=== PATIENT | female | born 1975 | race Caucasian/White ===

== ENCOUNTER 2024-12-28 07:01 | Emergency (ER) | payer OTHER, SELFPAY ==
--- NOTE | 2024-12-28 | ECG_ITS ---
Test Reason : raine Blood Pressure : */* mmHG Vent. Rate : 51 BPM Atrial Rate : 51 BPM P-R Int : 126 ms QRS Dur : 80 ms QT Int : 472 ms P-R-T Axes : 5 40 59 degrees QTcB Int : 435 ms Sinus bradycardia Otherwise normal ECG Referred By: Generic ED Physician Electronically Signed By: Wander Peters
--- NOTE | ~2024-12-28 | XR_ITS ---
EXAMINATION: XR CHEST CLINICAL INFORMATION: weakness, dyspnea COMPARISON: None available. TECHNIQUE: 2 views of the chest were obtained. FINDINGS: Hyperinflated lungs. No consolidation, pleural effusion or pneumothorax. Cardiomediastinal silhouette size is normal. S-shaped curvature of the mid thoracic spine. XR/XR chest 2V IMPRESSION: Hyperinflated lungs without acute airspace disease. Mild scoliosis, mid thoracic spine. Electronically signed by: Derick Cortez MD 12/28/2024 09:11 AM EDT
--- NOTE | ~2024-12-28 | CT_ITS ---
EXAMINATION: CT HEAD WITHOUT CONTRAST CLINICAL INFORMATION: Weakness times weeks. COMPARISON: None available. TECHNIQUE: Contiguous axial imaging was performed from the skull base to vertex without intravenous administration of contrast. This CT examination was performed using dose optimization techniques as appropriate, variously including the following: *Automated exposure control *Adjustment of mA and/or kV according to patient size (this includes techniques or standardized protocols for targeted exams where dose is matched to indication/reason for exam; i.e. extremities or head) *Use of iterative reconstruction technique FINDINGS: There is no evidence of intracranial hemorrhage or extra-axial fluid collection. There is no mass effect, or edema. No CT evidence of acute territorial infarct. Ventricles, sulci, and cisterns are normal in size and configuration for patient age. No hydrocephalus. No midline shift. Negative hyperdense MCA sign. Negative insular ribbon sign. 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 Otherwise no significant white matter abnormalities. Normal pituitary. Globes and orbital contents image normally. No extracranial soft tissue abnormalities. The paranasal sinuses, mastoid air cells, and tympanic cavities are normally aerated. No suspicious bony abnormalities. There are no acute fractures evident. CT/CT head/brain wo IV con IMPRESSION: No acute intracranial abnormalities. Electronically signed by: Kumar Min MD 12/28/2024 10:13 AM EDT
[2024-12-28 07:06] VITALS: BP 116/63; O2SAT 100
[2024-12-28 07:11] VITALS: BP 121/74; PULSE 58; RESP 14; TEMP 36.6; O2SAT 100; BMI 20.4
[2024-12-28 07:17] VITALS: BP 121/74; PULSE 58; RESP 14; TEMP 36.6; O2SAT 100
--- NOTE | 2024-12-28 07:23 | PC.NURSE ---
Patient A&O x 3. PMH hashimotos, gastroparesis. Patient presents to ED c/o weakness. Patient has been feeling weak over the last two weeks, Patient has been seen recently twice at [facility] to rule out stroke and low BP, patient states no significant findings. VSS and up to date. Denies pain. SOB on exertion but denies SOB at this time. Sick contact with , who had a cold a week ago. Call mcneal in reach plan of care on going
--- NOTE | 2024-12-28 08:03 | ED.GENADULT ---
HPI - General Adult General Chief complaint: Weakness Stated complaint: GENERAL WEAKNESS/ SOB Time Seen by Provider: 12/28/24 07:58 Source: patient, RN notes reviewed and old records reviewed Mode of arrival: ambulatory Limitations: no limitations History of Present Illness ED Provider: Kari GUERRIER narrative: Patient is a 49-year-old female with history of Tish's thyroiditis presenting to the emergency department with complaining of profound fatigue and weakness since . Reports shortness of breath due to weakness. Denies any complaints of pain. Has been evaluated at [facility] ED twice for symptoms, has also seen PCP twice who ordered OT as patient initially diagnosed with BPPV at [facility]. OT advised patient that symptoms could be due to myasthenia gravis. states they began to research MG symptoms online, and feels patient has many similar symptoms. PCP ordered labs yesterday but patient does not have results yet. states he brought patient to the ED this morning because she was opening a birthday gift and got so excited on the inside that she became dyspneic. She denies fevers, nausea, vomiting, diarrhea. Reports mild cough. Has been out of work due to symptoms. complaint: weakness/fatigue Onset (ago): week(s) Related Data Allergies Allergy/AdvReac Type Severity Reaction Status Date / Time No Known Allergies Allergy Verified 12/28/24 07:12 [No Known Allergies*] Review of Systems Review of Systems: As per HPI Yes all other systems are reviewed and are negative Constitutional: Constitutional: Reports as per HPI Neurologic: Denies Abnormal speech present [facility] Social History Social History Smoked in Last 30 Days: No Use of substances other than those prescribed or required for medical reasons: No Advance Directives: No Advance Directives Information Provided: Yes Do you have a plan to hurt others: No Plan Patient : No Physical Exam ED Vital Signs: Vital Signs - 24 hr 12/28/24 07:11 12/28/24 07:17 12/28/24 13:09 Temperature 97.8 F 97.8 F 98.3 F Pulse Rate 58 58 70 Respiratory Rate 14 14 14 Blood Pressure 121/74 121/74 93/62 Pulse Oximetry 100 100 97 Oxygen Delivery Method Room Air Room Air Room Air BMI result Body Mass Index 20.4 Vital signs have been reviewed and appear to be correct. Blood pressure normal. Heart rate normal. Respiratory rate normal. Temperature normal. Oxygen saturation normal. Const General: cooperative, healthy appearing and no acute distress Orientation/consciousness: oriented to person, oriented to place, oriented to time and patient oriented x3 Limitations: no limitations HENMT Head: Yes normocephalic and Yes atraumatic Ears: external ears normal General nose exam: Normal external nose present Face and sinus: Yes face symmetric Mouth: oropharynx normal and moist mucous membranes Throat: Yes uvula midline Eyes Pupils: Equal, round and reactive pupils present Neck Neck: Yes normal visual inspection, Yes no meningeal signs and Yes supple Resp Effort & Inspection: normal respiratory effort and able to speak in complete sentences Auscultation: clear to auscultation bilaterally Cardio Rate: regular rate Rhythm: regular rhythm Heart sounds: S1 normal heart sound present and S2 normal heart sound present GI Palpation (GI): Soft to palpation and nontender Auscultation: normoactive bowel sounds General: Yes no CVA tenderness Back/Spine/Pelvis Back: no CVA tenderness Skin General skin exam: elasticity normal and turgor normal Neuro General: oriented to person, oriented to place, oriented to time, patient oriented x3, tone normal, moves all extremities, Normal light touch and pain sensation, no meningeal signs, no focal motor deficits, CN's II-XI intact bilaterally and deep tendon reflexes 2+ bilaterally Cranial nerves: Yes Equal, round and reactive pupils present Cognition (Neuro): normal cognition Speech: No Abnormal speech present Motor exam (neuro): Abnormal motor strength present (4/5 strength all extremities) Sensory Exam: Normal double simultaneous stimulation for sensation Extrem General: Yes full ROM, Yes no pedal edema and Yes no calf tenderness Psych Mental Status: mental status grossly normal Affect: normal affect Thought process: Normal thought process present Course Reevaluation(s) Reevaluation #1: Notified by critical care technician that patient noted to have bright green, mucousy bowel movement. GI panel and C. diff ordered. Time: 10:23 Medical Decision Making Medical Decision Making MDM Narrative: Patient is a 49-year-old female with history of Tish's thyroiditis presenting to the emergency department with complaining of profound fatigue and weakness since Memorial Day. On exam patient is awake, A+Ox3, VS WNL, afebrile, normal neurological exam without focal deficits, physical exam findings as above. Given reported symptoms and physical exam findings, initial differential includes but is not limited to cardiac arrhythmia, electrolyte abnormality, abnormal thyroid level, UTI, tick borne illness. Unlikely ICH, malignancy/mass but will check CT head and chest x-ray. Labs notable for leukopenia, mild anemia, no significant electrolyte abnormalities, normal TSH. Tick panel pending, patient will be updated with any positive results. C diff negative, additional GI panel pending and patient will be contacted with any positive results. Urinalysis is without evidence of infection. X-ray chest notable for No cardiomegaly, no evidence of pneumonia, no mass. CT head is without evidence of ICH, mass. My interpretation is in agreement with the radiologist's interpretation. NIF test normal. Results discussed extensively with patient and family at bedside. Advised patient to follow-up with PCP for outpatient MRI and will refer to Neurology for further evaluation of her symptoms. Return precautions discussed at bedside. Patient and family verbalized understanding of and agreement with plan. Differential Diagnosis Differential Diagnoses: The differential diagnosis associated with the presentation includes as per [facility] Admission/Observation Consideration of admission/observation: Escalation of care including admission/observation considered Patient would have been admitted to the hospital had their work up had any findings where hospital admission was appropriate and their clinical presentation warranted hospital admission. Lab Data [facility] Lab Attestation statement: I reviewed the patient's lab results. As per [facility] 12/28/24 08:52 12/28/24 08:52 Labs: Lab Results 12/28/24 12/28/24 12/28/24 Range/Units 08:52 10:10 10:27 WBC 2.7 L (4.8-10.8) X10*3/uL RBC 4.02 L (4.20-5.50) X10*6/uL Hgb 11.4 L (12.0-16.0) g/dl Hct 33.0 L (37.0-47.0) % MCV 82.1 (80.0-98.0) fL MCH 28.4 (27.0-33.0) pg MCHC 34.5 (31.0-35.0) g/dl RDW 14.6 (11.0-16.0) % Plt Count 160 (160-400) X10*3/uL MPV 10.3 (9.4-12.3) fL Immature Gran % (Auto) 0.0 (0.0-0.4) % Neut % (Auto) 52.8 (45-73) % Lymph % (Auto) 32.5 (20-40) % [place] % (Auto) 12.5 H (2-11) % Eos % (Auto) 1.8 (0-4) % Baso % (Auto) 0.4 (0-2) % Lymph # (Auto) 0.9 L (1.2-4.9) X10*3/uL [place] # (Auto) 0.3 (0.1-1.2) X10*3/uL Eos # (Auto) 0.1 (0.0-0.4) X10*3/uL Baso # (Auto) 0.0 (0.0-0.2) X10*3/uL Abs Immat Gran (auto) 0.00 (0.00-0.03) X10*3/uL Absolute Neuts (auto) 1.4 L (2.0-8.3) x10*3/uL Absolute Nucleated RBC 0.000 (0.0-0.012) X10*3/uL Nucleated RBC % (auto) 0.0 (0.0-0.2) /100WBC Sodium 141 (135-145) mmol/L Potassium 3.8 (3.3-5.1) mmol/L Chloride 107 (96-108) mmol/L Carbon Dioxide 28 (22-29) mmol/L Anion Gap 10 L (12-20) BUN 11 (9-16) mg/dL Creatinine 0.82 (0.5-1.4) mg/dL Estim Creat Clear Calc 58.9 Estimated GFR > 60 Random Glucose 90 (60-115) mg/dL Calcium 9.3 (8.4-10.2) mg/dL Magnesium 2.0 (1.6-2.6) mg/dL Total Bilirubin 0.4 (0.0-1.0) mg/dL AST 36 H (5-31) U/L ALT 12 (0-31) U/L Alkaline Phosphatase 47 (39-117) U/L Total Protein 6.7 (6.5-8.0) g/dL Albumin 4.1 (3.5-5.0) g/dL TSH 1.72 (0.32-4.0) uIU/mL Urine Color Yellow Urine Appearance Clear Urine pH 6.5 (5.0-9.0) Ur Specific [place] 1.015 (1.005-1.025) Urine Protein Negative (Neg-Trace) mg/dL Urine Glucose (UA) Negative (Negative) mg/dL Urine Ketones Negative (Negative) mg/dL Urine Blood Negative (Negative) Urine Nitrite Negative (Negative) Ur Leukocyte Esterase Negative (Negative) C. difficile Tox B Gene NEGATIVE (Negative) Monoscreen Negative (Negative) Independent Interpretation I performed an independent interpretation of an: Plain X-Ray and CT Scan Interpretation: X-ray chest notable for No cardiomegaly, no evidence of pneumonia, no mass. CT head is without evidence of ICH, mass. Radiology Impression Discussion of test interpretation with radiology: I have reviewed the radiologist's reading. Radiologist Impression: XR/XR chest 2V IMPRESSION: Hyperinflated lungs without acute airspace disease. Mild scoliosis, mid thoracic spine. CT/CT head/brain wo IV con IMPRESSION: No acute intracranial abnormalities. Independent Historian Clinical information obtained from an independent historian. History obtained from or confirmed by: Spouse and Parent External Record Review External record reviewed: Inpatient record, Office record and Outpatient record Discharge Plan Discharge Clinical Impression: Weakness Patient Disposition: Home, Self-Care Instructions: Weakness (ED), Fatigue (ED) Additional Instructions: You were evaluated in the emergency department today for profound fatigue. Your labs were reassuring. Your urine did not show evidence of infection. Your tick borne illness panel and GI panel (stool sample) is pending and you will be contacted with any positive results. The CT scan of your brain and chest x-ray did not show any acute abnormalities. Your NIF and VC testing by respiratory therapy were normal. We recommend follow up with your primary care provider and are referring you to neurology for further evaluation of your symptoms. Return to the emergency department if you develop one-sided weakness, chest pain, difficulty breathing, fever, or any other new or concerning symptoms. Referrals: Kelley Serrano MD [Physician] - 1 week (profound fatigue/weakness since 12/11/24) Print Language: Danish
--- OUTSIDE RECORDS SUMMARY | 2024-12-28 08:06 | XMS_ITS | Patient Health Record ---
Author Organization Tushar Bowling III, MD Address [address] [place] [address] [place] [address] Care Team Providers Care Clinical Physician Assistant Name Role Phone Eagle Carri Primary Care Provider Tushar Martinez [facility] [phone] Allergies Allergen (clinical drug ingredient) Drug/Non Drug [...] Last Name Dash Referring Provider Speciality [facility] Referred Provider Vitaly Robles Referred Provider Specialty Endocrinolog y Referral Priority Routine Reason positive RAY ? lupus evaluate and treatment Diagnosis 1 RAY positive (R76.8) Diagnosis 2 Upper extremity weak ness (R29.898) Referral Organization Tushar Bowling III, MD Referring Provider First Name Tushar Referring Provider Last Name Dash Referring Provider Speciality Internal edicine Referred Provider [facility] Referred Provider Specialty Rheumatology Referral Priority Routine Medications Medication SIG (Take, Route, Frequency, Duration) [...] Never (0 point) Points 1 Interpretation Negative Problems Problem Type SNOMED Code ICD Code Onset Dates Problem Status W/U Status Risk Notes Problem 412260225 RAY positive (R76.8) Active confirmed Problem 166903947 Upper extremity weakness (R29.898) Active confirmed Problem 10679663 Hypothyroidism, unspecified type (E03.9) Active confirmed Vital Signs Heart Rate 55 /min 12/23/2024 Temperature 98.1 degrees Fahrenheit 12/23/2024 Blood pressure diastolic 56 mm Hg 12/23/2024 Height 5' in 12/23/2024 Blood pressure systolic 92 mm Hg 12/23/2024 Weight 100 lbs 12/23/2024 BMI 19.53 kg/m2 12/23/2024 Encounters Encounter Location Date Provider Diagnosis Tushar Bowling III, MD [address] [place] [address] [place] [address] 12/23/2024 Tushar Bowling III, MD [address] [place] [address] [place] [address] 12/27/2024 Tushar Bowling Plan Of Treatment No Information Insurance Providers Payer Name Payer Address Payer Phone Subscriber Number Group Number Insured Name Patient Relationship to Insured Coverage Start Date Coverage End Date [facility] [address] [facility] [address] [facility] [place] [phone] [id number] Eva Alejandra Self - patient is the insured [facility] [address] [place] [address] [phone] [id number] Tigre Alejandra Spouse - patient is the spouse of the insured Medical (General) History Surgical History Surgery Date(Month/Year) Root canal 2023
[2024-12-28 09:00] LABS: MANUAL DIFF FLAG NO
[2024-12-28 09:02] LABS: Basophils Percent Auto 0.4 % (0-2); Eosinophils Absolute Auto 0.1 X10*3/uL (0.0-0.4); Eosinophils Percent Auto 1.8 % (0-4); Hemoglobin 11.4 g/dl (12.0-16.0); Lymphocytes Absolute Auto 0.9 X10*3/uL (1.2-4.9); Lymphocytes Percent Auto 32.5 % (20-40); Mean Corpuscular HGB Conc 34.5 g/dl (31.0-35.0); Mean Corpuscular Hemoglobin 28.4 pg (27.0-33.0); Mean Corpuscular Volume 82.1 fL (80.0-98.0); Mean Platelet Volume 10.3 fL (9.4-12.3); Monocytes Absolute Auto 0.3 X10*3/uL (0.1-1.2); Monocytes Percent Auto 12.5 % (2-11); Neutrophils Absolute Auto 1.4 x10*3/uL (2.0-8.3); Neutrophils Percent Auto 52.8 % (45-73); Platelet Count 160 X10*3/uL (160-400); Red Blood Count 4.02 X10*6/uL (4.20-5.50); Red Cell Distribution Width 14.6 % (11.0-16.0); White Blood Count 2.7 X10*3/uL (4.8-10.8)
[2024-12-28 09:17] LABS: Alanine Aminotransferase 12 U/L (0-31); Albumin Level 4.1 g/dL (3.5-5.0); Alkaline Phosphatase 47 U/L (39-117); Anion Gap 10 (12-20); Aspartate Amino Transferase 36 U/L (5-31); Bilirubin Total 0.4 mg/dL (0.0-1.0); Blood Urea Nitrogen 11 mg/dL (9-16); Calcium 9.3 mg/dL (8.4-10.2); Carbon Dioxide 28 mmol/L (22-29); Chloride 107 mmol/L (96-108); Creatinine Clr Calc Pharmacy 58.9; Estimated Glomerular Filt Rate > 60; Glucose Random 90 mg/dL (60-115); Potassium 3.8 mmol/L (3.3-5.1); Sodium 141 mmol/L (135-145); Total Protein 6.7 g/dL (6.5-8.0)
[2024-12-28 09:37] LABS: Monotest Negative (Negative); TSH reflex Free T4 1.72 uIU/mL (0.32-4.0)
--- NOTE | 2024-12-28 10:07 | PC.RT ---
NIF and VC completed per provider request NIF -60 cmH2O VC 2.9L
[2024-12-28 10:40] LABS: Appearance Urine Clear; Color Urine Yellow; Glucose Urine UA Negative (Negative); Leukocyte Esterase Urine Negative (Negative); Nitrite Urine Negative (Negative); PH 6.5 (5.0-9.0); Specific Gravity - Urine 1.015 (1.005-1.025); Urine Blood Negative (Negative); Urine Ketones Negative (Negative); Urine Protein Negative (Neg-Trace)
[2024-12-28 11:43] LABS: CDiff Gene PCR NEGATIVE (Negative)
[2024-12-28 12:02] LABS: Adenovirus F 40/41 Not Detected (Not Detect.); Astrovirus Not Detected (Not Detect.); Campylobacter Not Detected (Not Detect.); Cryptosporidium Not Detected (Not Detect.); Cyclospora cayetanensis Not Detected (Not Detect.); E. coli EAEC Not Detected (Not Detect.); E. coli EPEC Not Detected (Not Detect.); E. coli ETEC Not Detected (Not Detect.); E. coli STEC Not Detected (Not Detect.); Entamoeba histolytica Not Detected (Not Detect.); Giardia lamblia Not Detected (Not Detect.); Norovirus GI/GII Not Detected (Not Detect.); Plesiomonas shigelloides Not Detected (Not Detect.); Rotavirus A Not Detected (Not Detect.); Salmonella Not Detected (Not Detect.); Sapovirus Not Detected (Not Detect.); Shigella sp./EIEC Not Detected (Not Detect.); Vibrio Not Detected (Not Detect.); Vibrio Cholerae Not Detected (Not Detect.); Yersinia enterocolitica Not Detected (Not Detect.)
[2024-12-28 13:09] VITALS: BP 93/62; PULSE 70; RESP 14; TEMP 36.8; O2SAT 97
[2024-12-28 13:19] VITALS: BP 92/68; PULSE 65; RESP 14; TEMP 36.4; O2SAT 97
[2024-12-30 18:38] LABS: A. Phagocytphilium DNA,RT-PCR NOT DETECTED (NOT DETECTED); Babesia Microti DNA, RT-PCR NOT DETECTED (NOT DETECTED); Borrelia Miyamotoi,DNA RT-PCR NOT DETECTED (NOT DETECTED); E.Chaffeensis DNA RT-PCR NOT DETECTED (NOT DETECTED); Lyme(Borrelia ssp)DNA RT-PCR NOT DETECTED (NOT DETECTED)
== END 2024-12-28 13:21 | disposition home or self-care (01) ==
PROVIDERS: Registered Nurse Emergency; Emergency Provider Emergency Medicine; PCP Physician Assistant
DX: R53.1 Weakness (principal); R06.02 Shortness of breath; R53.83 Other fatigue
CPT/HCPCS: 36415; 70450; 71046; 80053; 81003; 83735; 84443; 85025; 86308; 87468; 87469; 87478; 87484; 87493; 87507; 87798; 93005; 99284; 99285

== ENCOUNTER → 2024-12-28 07:40 | Outpatient (BNV) | payer OTHER, SELFPAY | PROVIDERS: Emergency Provider Emergency Medicine; PCP Physician Assistant; Visit Provider Internal Medicine Cardiovascular Disease | DX: R00.1 Bradycardia, unspecified (principal) | CPT/HCPCS: 93010 ==

== ENCOUNTER → 2024-12-28 08:26 | Outpatient (BNV) | payer OTHER, SELFPAY | PROVIDERS: Emergency Provider Emergency Medicine; PCP Physician Assistant; Visit Provider Radiology Diagnostic Radiology | DX: R06.00 Dyspnea, unspecified (principal) | CPT/HCPCS: 70450; 71046 ==

== ENCOUNTER 2025-01-13 14:53 | Outpatient (REF) | payer OTHER, SELFPAY ==
--- NOTE | 2025-01-13 | EMG_ITS ---
Please see the attached neurophysiology report MTDD
--- OUTSIDE RECORDS SUMMARY | 2025-01-13 14:55 | XMS_ITS | Patient Health Record ---
Author Organization Tushar Bowling III, MD Address [address] [place] [address] [place] [address] Care Team Providers Care Pattern Illustrator Name Role Phone Eagle Carri Primary Care Provider Tushar Martinez [phone] Allergies Allergen (clinical drug ingredient) Drug/Non Drug [...] of this week or beginning of next week. Referral Priority Routine Reason positive RAY ? lupus evaluate and treatment Diagnosis 1 RAY positive (R76.8) Diagnosis 2 Upper extremity weak ness (R29.898) Referral Organization Tushar Bowling III, MD Referring Provider First Name Tushar Referring Provider Last Name Dash Referring Provider Speciality Internal M edicine [facility] Referred Provider Specialty Rheumatology General Notes Dinah Salas RJ 12/29 09:37:39 AM >Waiting for progress note to fax to [facility], Aurora Cage 12/31/2024 02:29:37 PM > Referral, progress note and medical records faxed., Aurora Cage 01/03/2025 02:58:57 PM >Spoke with Emeka from [facility], stated they have not received the referral and needs to have it refaxed. Confirmed the fax number was correct. Referral refaxedFauzia Amber 01/04/2025 02:40:59 PM > Spoke with Elias from [facility]. They have NOT received the referral. Confirmed fax number and was given an Alternate fax number [phone]. Referral refaxedFauzia Amber 01/05/2025 11:12:18 AM > Office has received referral and it is currently under review by the doctor. Stated when referral is received back from doctor they will contact patient to schedule appointment. Spoke with Emeka from [facility] Referral Priority Urgent Medications Medication SIG (Take, Route, Frequency, Duration) [...] Problem Status W/U Status Risk Notes Problem 311696227 RAY positive (R76.8) Active confirmed She has a family history of lupus. The significance of this value is unclear. She is referred to rheumatology for an opinion. Problem 855756873 Upper extremity weakness (R29.898) Active confirmed Cause of this is unclear. She is being referred to rheumatology as well as to physical therapy. Problem 87931359 Hypothyroidism , unspecified type (E03.9) Active confirmed She was recently switched from [place] thyroid 2 levothyroxine. Recent evaluation not available. Vital Signs Heart Rate 55 /min 12/23/2024 She now weighs 100 pounds. Temperature 98.1 degrees Fahrenheit 12/23/2024 She now weighs 100 pounds. Blood pressure diastolic 56 mm Hg 12/23/2024 She now weighs 100 pounds. Height 5' in 12/23/2024 She now weighs 100 pounds. Blood pressure systolic 92 mm Hg 12/23/2024 She now weighs 100 pounds. Weight 100 lbs 12/23/2024 She now weighs 100 pounds. BMI 19.53 kg/m2 12/23/2024 She now weighs 100 pounds. Encounters Encounter Location Date Provider Diagnosis Tushar Bowling III, MD [address] [place] [address] [place] [address] 12/23/2024 Tushar Bowling RAY positive R76.8 ; Hypothyroidism, unspecified type E03.9 ; Upper extremity weakness R29.898 and Underweight R63.6 Tushar Bowling III, MD [address] [place] [address] [place] [address] 12/27/2024 Tushar Bowling III, MD [address] [place] [address] [place] [address] 12/29/2024 Tushar Bowling Assessments Encounter Date Diagnosis (ICD Code) Assessment Notes Treatment Notes Treatment Clinical Notes 12/23/2024 RAY positive (ICD-10 - R76.8) She has a family history of lupus. The significance of this value is unclear. She is referred to rheumatology for an opinion. 12/23/2024 Hypothyroidism, unspecified type (ICD-10 - E03.9) She was recently switched from [place] thyroid 2 levothyroxine. Recent evaluation not available. 12/23/2024 Upper extremity weakness (ICD-10 - R29.898) Cause of this is unclear. She is being referred to rheumatology as well as to physical therapy. 12/23/2024 Underweight (ICD-10 - R63.6) Her body mass index is 19. She weighs 100 pounds. She has gained 4 pounds since last summer. Plan Of Treatment No Information Insurance Providers Payer Name Payer Address Payer Phone Subscriber Number Group Number Insured Name Patient Relationship to Insured Coverage Start Date Coverage End Date [facility] [address] [facility] [address] [place] [phone] [id number] Eva Alejandra Self - patient is the insured [facility] [address] [place], [place] [address] [phone] [id number] Tigre Alejandra Spouse - patient is the spouse of the insured Medical (General) History Medical History History ICD Code Tish's thyroiditis Positive. DNA Upper extremity weakness Hypothyroidism Surgical History Surgery Date(Month/Year) Root canal 2023
--- OUTSIDE RECORDS SUMMARY | 2025-01-13 14:55 | XMS_ITS | Continuity of Care Document ---
Author Organization [facility] [address] [place] [address] Phone [phone] Care Team Providers Care Radio Talk Show Host Name Role Phone Tushar Bowling M.D. Care Team Information Receive r [phone] Social History Type Date Description Comments Sex Female Sex Unknown Medical Devices Description No Information Available Encounters Description No Information Available Assessments Description No Information Available Plan of Treatment Future Appointment(s):* 03/17/2025 9:15 am - Neda Johnson NP at Main Office Functional Status Description No Information Available Mental Status Description No Information Available Referrals Description No Information Available
== END 2025-01-13 14:54 | disposition home or self-care (01) ==
LOC: HO.NEURO 14:53
PROVIDERS: PCP Physician Assistant; Visit Provider Psychiatry & Neurology Neurology
DX: M62.81 Muscle weakness (generalized) (principal)
CPT/HCPCS: 95886; 95913

== ENCOUNTER → 2025-01-13 15:50 | Outpatient (BNV) | payer OTHER, SELFPAY | PROVIDERS: PCP Physician Assistant; Visit Provider Psychiatry & Neurology Neurology | DX: R53.1 Weakness (principal) | CPT/HCPCS: 95886; 95913 ==

== ENCOUNTER 2025-02-03 11:16 | Outpatient (AMB) | payer OTHER, SELFPAY ==
--- OUTSIDE RECORDS SUMMARY | 2024-12-23 07:30 | XMS_ITS ---
Author Organization Tushar Bowling III, MD Address [address] [place] [address] Care Team Providers Care Superintendent Service Name Role Phone Eagle Carri Primary Care Provider Tushar Martinez [phone] Allergies Allergen (clinical drug ingredient) Drug/Non Drug [...] to get patient in within about 2 weeks, Aurora Cage 12/31/2024 02:30:02 PM > Referral, progress note and all medical records faxed., Aurora Cage 01/03/2025 02:54:48 PM > Spoke with Trish at Dr. Robles office they have received the referral from 12/31/24. the referral dept is currently working on referrals from 12/20. She stated the patient should receive a call from them by the end of this week or beginning of next week., Dinah Salas CMA 01/20/2025 02:49:07 PM > I called Dr [...] Provider Speciality Internal M edicine Referred Provider [facility] Referred Provider Specialty Rheumatology General Notes Maritza Dinah CMA 12/29 09:37:39 AM >[facility] 12/31/2024 02:29:37 PM > Referral, progress note and medical records faxed.Fauzia Amber 01/03/2025 02:58:57 PM >Spoke with Emeka from [facility], stated they have not received the referral and needs to have it refaxed. Confirmed the fax number was correct. Referral refaxedFauzia Amber 01/04/2025 02:40:59 PM > Spoke with Elisa from [facility]. They have NOT received the referral. Confirmed fax number and was given an Alternate fax number [phone]. Referral refaxedFauzia Amber 01/05/2025 11:12:18 AM > Office has received referral and it is currently under review by the doctor. Stated when referral is received back from doctor they will contact patient to schedule appointment. Spoke with Emeka from [facility], Maritza Dinahlinda DE LA ROSA 01/20/2025 02:48:11 PM >Called [facility] pt has appt on 03/15/2025 at 10:15am [...] Date Provider Diagnosis Tushar Bowling III, MD [address] [place] [address] [place] [address] 12/23/2024 Tushar Bowling RAY positive R76.8 ; [...] - E03.9) She was recently switched from [place] thyroid 2 levothyroxine. Recent evaluation not available. [...] * Brittney COONOB:[birth year] (49 yo F)Acc No.[id number]:12/23/2024 Progress Notes Patient: Eva LOPES Provider: Jessica Bowling MD :1975 A ge:48 Y S ex:Female Date:12/23/2024 Address:[address] [place], [place] [id number] Pcp:Carri Guillermo Subjective: * Chief Complaints: * C oncern for thyroid cancerConcern for systemic lupusHypothyroidHashimoto's thyroiditisUpper extremity pain and weakness * HPI: v : She clearly is a very pleasant 49 year old woman from [place], [place], who comes to the office today for the first time for a consultation. She is concerned about her risk of thyroid cancer. She receives her primary medical care at [facility]. Her PCP is Dr. Edvin Park M.D., but she usually cease SELENA Renterai. They are in [place], [place]. The available records are incomplete. On [...] 2 weeks ago. She works as a high school agriculture teacher and has recently developed pain and numbness and weakness in her upper extremities. Cause of this is unclear. Her primary care. I have tried to get her into endocrinology in [place], [place], but there is a waiting list of several months. On physical examination today her thyroid was not palpable. Her mental status was normal. There was pain to eran muscles of her upper extremities, which were weaker, more on the left than on the right. I found no evidence for thyroid cancer. She is being referred to [facility] for diagnosis and [...] N otes :She was recently switched from [place] thyroid 2 levothyroxine. Recent evaluation not available. [...] true * Provider: Jessica Bowling MD Date: 12/23/2024 Generated for Penelope torres/Cuong/Stephanyitting on: 02/03/2025 12:11 PM EDT History and Physical Notes * Examination Category [...] and treatment 12/23/2024 Tushar Bowling ARTHRITIS, TREAT [facility] positive RAY ? lupus evaluate and treatment
--- OUTSIDE RECORDS SUMMARY | 2025-01-28 23:59 | XMS_ITS | Continuity of Care Document ---
Author Organization [facility] Address [address] [place] [address]- Care Team Providers Care Battery Service Technician Name Role Phone Lavon Park MD Primary Care Physician Encounter [facility] [id number] Date(s): 12/28/24 - 01/28/[address] [address] [phone] Attending Physician: Carri Carrera Admitting Physician: Carri Carrera Referring Physician: Carri Carrera Encounter Type: Pre-Outpt Allergies, Adverse Reactions, Alerts No Known Allergies Immunizations Given and Recorded Vaccine Date Status Refusal Reason influenza virus vaccine, inactivated 1 05/03/13 Gi keesha tetanus-diphtheria toxoids (Td) 10/12/04 Given 1Result Comment: [05/03/2013] PATIENT DECLINES FLU SHOT Medications levothyroxine 75 mcg (0.075 mg) oral tablet 1 tablet = 0.075 mg, By Mouth, Daily, for 90 days, # 90 tablet, 3 Refills, Hard Stop 01/12/16 3:33:52PM EDT, 01/17/15 3:33:52 PM EDT, [id number] Start Date: 01/17/15 Stop Date: 01/12/16 Status: Ordered Quantity: 90.0 Unit: tablet Repeat number: 4 Problem List Condition Confirmation Course Effective Dates Status Health St atus Informant Hypothyroid Confirmed Active Lump or Mass in Breast/left 1 Confirmed 08/30/10 Active Migraine Confirmed Active 1s/p in office left breast core bx- benign fibroglandular breast tissue with focal fibroadenomatous change 08-29-10 Social History Social History Type Response Smoking Status Never smoker entered on: 05/10/14 Sex Sex Representation Female (finding) Patient Care team information Care Team Personnel Name: Lavon Park MD Position: [facility] Physician - Pediatrics Member Role: PCP Address: [address] [place] [id number] Telecom: Name: Liliana Fan Position: [facility] Member Role: Primary Care Nurse Care Team Related Persons Name: TONI TRINIDAD Insurance Providers Guarantor name: BRIANA AMOS Health Plan Information #: 1 Payer: [employer] Payer Identifier: Member Number: [id number] Group Number: [id number] Subscriber Identifier: [id number] Relationship to Subscriber: spouse Coverage Type: NA Coverage Verification Date: Telecom: Address: Health Plan Information #: 2 Payer: [facility] [employer] Payer Identifier: Member Number: [id number] Group Number: [id number] Subscriber Identifier: [id number] Relationship to Subscriber: self Coverage Type: NA Coverage Verification Date: Telecom: Address: Health Plan Information #: 3 Payer: [employer] PPO Payer Identifier: Member Number: [id number] Group Number: Subscriber Identifier: [id number] Relationship to Subscriber: spouse Coverage Type: NA Coverage Verification Date: Telecom: Address: Health Plan Information #: 4 Payer: [employer] Payer Identifier: Member Number: [id number] Group Number: [id number] Subscriber Identifier: [id number] Relationship to Subscriber: spouse Coverage Type: Other Private Insurance Coverage Verification Date: Telecom: Address:
--- NOTE | 2025-02-03 11:17 | A.OFFVIS_ITS ---
Intake Visit Reasons: Results Allergies No Known Allergies (No Known Allergies*) Allergy (Verified 12/28/24 07:12) Medication List - Last Reconciled 02/03/25 by Leslie Hunt MD famotidine 40 mg PO BID levothyroxine 100 mcg PO DAILY rizatriptan 10 mg PO PRN trazodone 100 mg PO BEDTIME HPI Comments Details: 49 yo RH woman with diagnoses of hypothyroidism, insomnia, and migraine who started having new symptoms around 2024. She reported symptoms of a numb feeling affecting her face and head, like she was wearing a cap, and then numbness, tingling, and weakness of arms and legs. There was no headache. She sometimes had palpitations. No loss of vision or double vision. No difficulty swallowing or breathing. She denied any stressful situation. She was not drinking alcohol or using any drugs. Family stated that usually she was a very happy and active person but now she was very different. [facility] Medical History (Updated 02/03/25 @ 11:36 by Leslie Hunt MD) Encephalopathy Insomnia Paresthesias Review of Systems Const Details: Constitutional:?No fever, chills, fatigue, weight loss, or night sweats. HEENT:?No headache, vision changes, hearing loss, nasal congestion, sore throat. Neurological:?No dizziness, syncope, seizures, numbness, tingling, weakness, tremors, memory loss. Psychiatric:?No anxiety, depression, mood swings, sleep disturbance, or hallucinations. Endocrine:?No heat/cold intolerance, polydipsia, polyuria, or hair/skin changes. Hematologic/Lymphatic:?No easy bruising, bleeding, or lymphadenopathy. Integumentary (Skin):?No rash, lesions, itching, or color changes. ? Physical Exam Neuro Other: Mental Status: Alert and oriented to person, place, and time. Normal attention. Normal spontaneous speech, fluency, and comprehension. No obvious issues with mood and memory. Affect is appropriate. Cranial Nerves: CN II: Visual gann full to confrontation, visual acuity intact. CN III, IV, : Pupils equal, round, reactive to light and accommodation. Extraocular movements are normal. CN V: Facial sensation is normal. CN VII: Facial movements symmetrical. CN VIII: Hearing intact to bedside conversation is normal. CN IX, X: Palate elevates symmetrically. CN XI: Shoulder shrug and head turn symmetrical. CN XII: Tongue midline without atrophy or fasciculations. Motor: Bulk and tone normal in all extremities. No significant muscle weakness in arms and legs. No drift. Reflexes: Deep tendon reflexes 2+ and symmetric. Plantar response down-going bilaterally. Coordination: Hgamtn-fh-orpu and jktu-qz-klsb testing normal. No dysmetria. Gait and Station: No obvious gait abnormality. No ataxia or instability. Extrapyramidal: Full facial expressions and blinking. No rigidity. Movements are appropriate with no tremor or abnormality. Speech: Normal; no dysarthria or tremor. Assessment & Plan Assessment & Plan (1) Paresthesias: Comment: No cause is found and it is already better Code(s): R20.2 - Paresthesia of skin Category: Medical (2) Migraine without aura, not intractable, without status migrainosus: Comment: EMG/NCS LEs at off in January 2025: WNL CT brain WO at [facility] in December 2024: [facility] brain WWO at [facility] in December 2024: [facility] Code(s): G43.009 - Migraine without aura, not intractable, without status migrainosus Category: Medical (3) RLS (restless legs syndrome): Code(s): G25.81 - Restless legs syndrome Category: Medical Plan Impression: a: Restless leg syndrome b: Migraine w/o aura c: Difficult to explain paresthesia with negative work up d: Insomnia that could be due to untreated RLS Rec: a: Gabapentin 100-300mg at bedtime for RLS b: DC trazodone, it was not helping c: Rizatriptan PRN for headaches d: Small dose of escitaloprim, 2.5-5mg in am might also benefit her but she was hesitant to take any such med. e: Couneling may also help but she was not inclined for that either Medications: New gabapentin 200 mg (2 x 100 mg) PO BEDTIME 60 caps 0RF Coding Level of Care Code Est Pt Level 5 (57949) Diagnoses Paresthesias R20.2 Migraine without aura, not intractable, without status migrainosus G43.009 RLS (restless legs syndrome) G25.81
--- OUTSIDE RECORDS SUMMARY | 2025-02-03 12:11 | XMS_ITS | Clinical Summary ---
Author Organization [facility] Address [address] [facility] [place] [facility] [address] [place] [address] Care Team Providers Care Contract Attorney Name Role Phone Lavon Park MD Primary Care Provider Allergies No known active allergies Medications famotidine (Pepcid) 40 mg tablet Take 40 mg by mouth twice daily. Active pantoprazole (ProtoNix) 40 mg EC tablet Take 40 mg by mouth twice daily. Active rizatriptan ROLL BUCKER (Maxalt-ROLL BUCKER) 10 mg disintegrating tablet Take 10 mg by mouth if needed. Active Gotham Thyroid 60 mg tablet Take 60 mg by mouth once daily. Active traZODone (Desyrel) 100 mg tablet 100 mg. Active Family History Medical History Relation Name Comments Fang's esophagus Father Colon cancer Father Esophageal cancer Father's Brother Crohn's disease Mother Esophageal cancer Paternal Grandfather Relation Name Status Comments Father Father's Brother Mother Paternal Grandfather Social History Tobacco Use Types Packs/Day Years Used Date Smoking Tobacco: Never Assessed Comments Unknown Sex and Gender Information Value Date Recorded Sex Assigned at Not on file Legal Sex Female 11:33 AM EST Gender Identity Not on file Sexual Orientation Not on file Last Filed Vital Signs Vital Sign Reading Time Taken Comments Blood Pressure 112/71 01/08/2024 2:51 PM EDT Pulse 64 01/08/2024 2:51 PM EDT Temperature - - Respiratory Rate - - Oxygen Saturation 100% 01/08/2024 2:51 PM EDT Inhaled Oxygen Concentration - - Weight 46.7 kg (103 lb) 01/08/2024 2:51 PM EDT Height 152.4 cm (5') 01/08/2024 2:51 PM EDT Body Mass Index 20.12 01/08/2024 2:51 PM EDT Plan of Treatment Health Maintenance Due Date Last Done Comments CT Colonography 1974 Colonoscopy 1974 Colorectal Cancer Screening 1974 FIT-DNA 1974 FIT 1974 FOBT 1974 HIV Screening 1974 Sigmoidoscopy 1974 MMR Vaccines (1 of 1 - Standard series) 12/29/1975 Hepatitis C Screening 1992 Hepatitis B Vaccines (1 of 3 - 19+ 3-dose series) 1993 Pap Smear 12/29/1995 Cervical Cancer Screening 2004 HPV/Cotest 2004 Mammogram 2014 COVID-19 Vaccine ( - season) 2024 Depression Screening 07/14/2024 Pneumococcal Vaccine: 50+ Years (1 of 1 - PCV) 2024 Zoster Vaccines (1 of 2) 2024 Influenza Vaccine (#1) 2025 , 05/11/2019, 04/21/2018, Additional history exists DTaP/Tdap/Td Vaccines (3 - Td or Tdap) 05/29/2032 05/29/2022, 04/21/2018, 10/12/2004 HIB Vaccines Aged Out No longer eligi ble based on patient's age to complete this topic HPV Vaccines Aged Out No longer eligi ble based on patient's age to complete this topic Hepatitis A Vaccines Aged Out No long er eligible based on patient's age to complete this topic IPV Vaccines Aged Out No longer eligi ble based on patient's age to complete this topic Meningococcal B Vaccine Aged Out No l onger eligible based on patient's age to complete this topic Meningococcal Vaccine Aged Out No carter jacque eligible based on patient's age to complete this topic Rotavirus Vaccines Aged Out No longer eligible based on patient's age to complete this topic Insurance [employer] Care Teams Contract Attorney Relationship Specialty Start Date End Date Lavon Park MD [address] [place] [id number] PCP - General 01/06/24
--- OUTSIDE RECORDS SUMMARY | 2025-02-03 12:11 | XMS_ITS | Encounter Summary ---
Author Organization [facility] Address [address] [place] [address] Phone Care Team Providers Care Volcanology Professor Name Role Phone Lindsay Christopher Primary Care Provider [phone] Carri Guillermo Primary Care Provider [phone] Encounter Details Date Type Department Care Team (Late st Contact Info) Description 09/25/2021 Procedure Pass [facility] Admitting Dept Virtual Department [address] [place] [address] Social History Tobacco Use Types Packs/Day Years Used Date Smoking Tobacco: Never Smokeless Tobacco: Never Alcohol Use Standard Drinks/Week Comments Yes 0 (1 standard drink = 0.6 oz pur e alcohol) very rare Comments No Sex and Gender Information Value Date Recorded Sex Assigned at Female 05/24/2021 7:57 AM EST Legal Sex Female 1:26 PM EST Gender Identity Female 05/29/2022 6:10 AM EST Sexual Orientation Straight 05/29/2022 6: 10 AM EST documented as of this encounter Plan of Treatment Not on file documented as of this encounter Visit Diagnoses Not on filedocumented in this encounter Care Teams Volcanology Professor Relationship Specialty Start Date End Date Lindsay Christopher PA [address] [place] [id number] PCP - General Family Medicine 03/27/21 02/22/24 Carri Guillermo PA [address] [place] [id number] PCP - General Physician Senior Budget Analyst 02/23/24 documented as of this encounter Additional Source Comments The information contained in this document represents components of the legal health record. It is not the complete legal health record.[facility]
== END 2025-02-03 11:43 | disposition home or self-care (01) ==
LOC: HO.HSM 11:16
PROVIDERS: PCP Physician Assistant; Visit Provider Psychiatry & Neurology Neurology
DX: R20.2 Paresthesia of skin (principal); G43.009 Migraine without aura, not intractable, without status migrainosus; G25.81 Restless legs syndrome
CPT/HCPCS: 99214

== ENCOUNTER 2025-07-12 11:58 | Outpatient (AMB) | payer OTHER, SELFPAY ==
--- OUTSIDE RECORDS SUMMARY | 2024-12-23 06:30 | XMS_ITS ---
Author Organization Tushar Bowling III, MD Address [address] [place] [address] [place] [address] Care Team Providers Care Marketing Editor Name Role Phone Carri Guillermo Primary Care Provider Dr. Tushar Martinez III [phone] Allergies Allergen (clinical drug ingredient) Drug/Non Drug Allergy documented on EMR Reaction Allergy Type Onset Date Status No Known Drug Allergy Unknown Drug Allergy Active No Known Food Allergy Unknown Drug Allergy Active Reason For Referral Reason hypothyroidism celi luate and treatment Diagnosis 1 Hypothyroidism, unsp ecified type (E03.9) Diagnosis 2 Weakness of both upp er extremities (R29.898) Diagnosis 3 RAY positive (R76.8) Referral Organization Tushar Bowling III, MD Referring Provider First Name Tushar Referring Provider Last Name Dash Referring Provider Speciality Internal M edicine Referred Provider Vitaly Robles Referred Provider Specialty Endocrinolog y General Notes Dinah Salas CMA 12/29 09:36:34 AM >I called Dr Robles office they stated they need referral/progress notes /labs faxed to them then they will call patient with appt should be able to get patient in within about 2 weeksFauzia Amber 12/31/2024 02:30:02 PM > Referral, progress note and all medical records faxed.Fauzia Amber 01/03/2025 02:54:48 PM > Spoke with Trish at Dr. Robles office they have received the referral from 12/31/24. the referral dept is currently working on referrals from 12/20. She stated the patient should receive a call from them by the end of this week or beginning of next week., Dinah Salas RJ 01/20/2025 02:49:07 PM > I called Dr Robles office pt has appt on 03/17/2025 at 9:15am Referral Priority Routine Referral Appointment Date 03/17/2025 Reason positive RAY ? lupus evaluate and treatment Diagnosis 1 RAY positive (R76.8) Diagnosis 2 Upper extremity weak ness (R29.898) Referral Organization Tushar Bowling III, MD Referring Provider First Name Tushar Referring Provider Last Name Dash Referring Provider Speciality Internal M edicine Referred Provider [facility] Referred Provider Specialty Rheumatology General Notes Dinah Salas RJ 12/29 09:37:39 AM >[facility] 12/31/2024 02:29:37 PM > Referral, progress note and medical records faxed.Fauzia Amber 01/03/2025 02:58:57 PM >Spoke with Emeka from [facility], stated they have not received the referral and needs to have it refaxed. Confirmed the fax number was correct. Referral refaxedFauzia Amber 01/04/2025 02:40:59 PM > Spoke with Elisa from [facility]. They have NOT received the referral. Confirmed fax number and was given an Alternate fax number [phone]. Referral refaxedFauzia Amber 01/05/2025 11:12:18 AM > Office has received referral and it is currently under review by the doctor. Stated when referral is received back from doctor they will contact patient to schedule appointment. Spoke with Emeka from [facility], Maritza Dinah CMA 01/20/2025 02:48:11 PM >Called [facility] pt has appt on 03/15/2025 at 10:15am Referral Priority Urgent Referral Appointment Date 03/15/2025 REASON FOR VISIT Concern for thyroid cancer, Concern for systemic lupus, Hypothyroid, Tish's thyroiditis, Upperextremity pain and weakness Medications Medication SIG (Take, Route, Frequency, Duration) Notes Start Date End Date Status Black Cohosh 540 MG as directed Orally Active Levothyroxine Sodium 100 MCG 1 tablet in the morning on an empty stomach Orally Once a day Active Gentle Laxative 5 MG 1 tablet as needed Orally Once a day Active Rizatriptan Benzoate 10 MG 1 tablet Orally Once a day, may repeat in one hour As needed Active Pantoprazole Sodium 40 MG 1 tablet 1/2 t o 1 hour before morning meal Orally Once a day Active traZODone HCl 100 MG 1 tablet at bedtime Orally Once a day Active Famotidine 40 MG 1 tablet Orally twic e a day Active Social History Tobacco Use: Social History Observation Description Date Details (start date - stop date) Never Smoker NA - NA Tobacco Control (Standard) Question Answer Notes Tobacco use: Nonsmoker Additional Findings: Tobacco non-user Aggressive nonsmoker AUDIT-C (Standard) Question Answer Notes Did you have a drink contain ing alcohol in the past year? Yes How often did you have six o r more drinks on one occasion in the past year? Less than monthly (1 point) How many drinks did you have on a typical day when you were drinking in the past year? 1 or 2 drinks (0 point) How often did you have a dri nk containing alcohol in the past year? Never (0 point) Points 1 Interpretation Negative Vital Signs Temperature 98.1 degrees Fahrenheit 12/24/19 25 Blood pressure systolic 92 mm Hg 12/24/19 25 Blood pressure diastolic 56 mm Hg 025 Heart Rate 55 /min 12/23/2024 Height 5' in 12/23/2024 Weight 100 lbs 12/23/2024 BMI 19.53 kg/m2 12/23/2024 She now weighs 100 pounds. Encounters Encounter Location Date Provider Diagnosis Tushar Bowling III, MD [address] [place] [address] [place] [address] 12/23/2024 Tushar Bowling RAY positive R76.8 ; Hypothyroidism, unspecified type E03.9 ; Upper extremity weakness R29.898 and Underweight R63.6 Assessments Encounter Date Diagnosis (ICD Code) Assessment Notes Treatment Notes Treatment Clinical Notes 12/23/2024 RAY positive (ICD-10 - R76.8) She has a family history of lupus. The significance of this value is unclear. She is referred to rheumatology for an opinion. 12/23/2024 Hypothyroidism, unspecified type (ICD-10 - E03.9) She was recently switched from [place] thyroid 2 levothyroxine. Recent evaluation not available. 12/23/2024 Upper extremity weakness (ICD-10 - R29.898) Cause of this is unclear. She is being referred to rheumatology as well as to physical therapy. 12/23/2024 Underweight (ICD-10 - R63.6) Her body mass index is 19. She weighs 100 pounds. She has gained 4 pounds since last summer. Plan Of Treatment Medication Medication Name Sig Start Date Stop Date Notes Black Cohosh 540 MG as directed Orally Levothyroxine Sodium 100 MCG 1 tablet in the morning on an empty stomach Orally Once a day Gentle Laxative 5 MG 1 tablet as needed Orally Once a day Rizatriptan Benzoate 10 MG 1 tablet Oral ly Once a day, may repeat in one hour Pantoprazole Sodium 40 MG 1 tablet 1/2 t o 1 hour before morning meal Orally Once a day traZODone HCl 100 MG 1 tablet at bedtime Orally Once a day Famotidine 40 MG 1 tablet Orally twice a day Referrals Referral Date Details 12/23/2024 12/23/2024, hypothyr oidism evaluate and treatment, Vitaly Robles 12/23/2024 12/23/2024, positive RAY ? lupus evaluate and treatment, [facility] Next Appt Details Follow Up: If ever needed, Jessica reno: ov Progress Notes * Brittney COONOB:[birth year] (49 yo F)Acc No.[id number]:12/23/2024 Progress Notes Patient: Eva LOPES Provider: Jessica Bowling MD :1975 A ge:48 Y S ex:Female Date:12/23/2024 Address:[address] [place], [place] [id number] Pcp:Carri Guillermo Subjective: * Chief Complaints: * C oncern for thyroid cancerConcern for systemic lupusHypothyroidHashimoto's thyroiditisUpper extremity pain and weakness * HPI: v : She clearly is a very pleasant 49 year old woman from [place], [place], who comes to the office today for the first time for a consultation. She is concerned about her risk of thyroid cancer. She receives her primary medical care at [facility]. Her PCP is Dr. Edvin Park M.D., but she usually cease SELENA Renteria. They are in [place], [place]. The available records are incomplete. On August 28, 2023 the white blood cell count was 2300, hematocrit 34.5, platelets 166 and differential normal. Her electrolytes were normal, glucose 91, BUN 8, creatinine 0.96 hormone binding globulin 154.0, dihydrotestosterone 49 DHEA sulfate 91.3. Anti-thyroglobulin antibody 152.0 and vitamin D 38.6.On February 21, 2021. The cholesterol was 188, triglycerides 64 HDL 64 and LDL 111. On December 23, 2024 the glucose was 87 BUN 15, creatinine 0.86. Electrolytes unremarkable. Calcium 8.7, white count 3.7, hemoglobin 10.9, hematocrit 33.3, mean cell volume 88, platelets 167. Differential 60% neutrophils, 30% lymphocytes, 7% monocytes, 2% eosinophils, 1% basophils. On December 08, 2024, and a in a was 1 08/14/59, magnesium 2.2, folic acid 7.2. She has been told she was hypothyroid in the past and that she had Tish's thyroiditis. At 1 point after a divorce and felt she couldn't eat and her weight fell to 96 pounds.She now weighs 100 pounds. She has been treated in the past with or more thyroid and now is on levothyroxine 100 ug, which was begun in 2 weeks ago. She works as a preschool disability teacher and has recently developed pain and numbness and weakness in her upper extremities. Cause of this is unclear. Her primary care. I have tried to get her into endocrinology in [place], [place], but there is a waiting list of several months. On physical examination today her thyroid was not palpable. Her mental status was normal. There was pain to eran muscles of her upper extremities, which were weaker, more on the left than on the right. I found no evidence for thyroid cancer. She is being referred to [facility] for diagnosis and physical therapy. She is concerned she will lose her job she is out of week because of her upper extremity weakness for the last 7 days. I am referring her to rheumatology for evaluation of possible myopathy. There will be no need for me to see her again, so I am returning her to primary care and fell to town. * ROS: G eneral/Constitutional: pain B oth upper extremities associated with weakness. C hills d enies. F atigue a dmits. F ever d enies. E NT: Decreased hearing d enies. R espiratory: Cough d enies. C ardiovascular: Chest pain with exertion d enies. D yspnea on exertion?denies. S hortness of breath d enies. G astrointestinal: Constipation o ccasional. D ecreased appetite t hat is associated with weight loss. D iarrhea d enies. H eartburn d enies. N ausea?denies. R ectal bleeding d enies. V omiting d enies. H ematology: bruising d enies. p etechiae d enies. S wollen glands n one have been noted. G enitourinary: Frequent urination d enies. M usculoskeletal: Muscle aches B oth arms. P ainful joints d enies.?Sciatica d enies. W eakness B oth arms. S kin: Itching d enies. R deshawn d enies. S kin lesion(s)?denies. N eurologic: Difficulty speaking d enies. D izziness d enies.?Headache d enies. L ow back pain d enies. P sychiatric: Depressed mood d enies. * Medical History: * Surgical History: R oot canal 2023 * Hospitalization/Major Diagno stic Procedure: D enies Past Hospitalization * Family History: F ather: alive, Lupus, Lyme disease, diagnosed with HTN, Cancer. M other: , COPD, rheumatoid arthritis, osteoarthritis, crohns disease, diagnosed with DM. C hildren: alive. P aternal Grand Father: , esophagus cancer, diagnosed with Cancer. P aternal Grand Mother: , alzheimer's dementia, Stroke. M aternal Grand Father: , bladder cancer, diagnosed with Cancer. M aternal Grand Mother: , stomach cancer, diagnosed with DM, Cancer.?1 sister(s) - healthy. 1 son(s) , 1 daughter(s) . . * Social History: T obacco Use: T obacco Control (Standard) T obacco use: N onsmoker A dditional Findings: Tobacco non-user A ggressive nonsmoker D rugs/Alcohol: D rugs H ave you used drugs other than those for medical reasons in the past 12 months? N o D rug/Alcohol: A VIRI-C (Standard) D id you have a drink containing alcohol in the past year? Y es H ow often did you have six or more drinks on one occasion in the past year? L ess than monthly (1 point) H ow many drinks did you have on a typical day when you were drinking in the past year? 1 or 2 drinks (0 point) H ow often did you have a drink containing alcohol in the past year? N ever (0 point) P oints 1 I nterpretation N egative * Medications: T akingFamotidine 40 MG Tablet 1 tablet Orally twice a day traZODone HCl 100 MG Tablet 1 tablet at bedtime Orally Once a day Pantoprazole Sodium 40 MG Tablet Delayed Release 1 tablet 1/2 to 1 hour before morning meal Orally Once a day Levothyroxine Sodium 100 MCG Tablet 1 tablet in the morning on an empty stomach Orally Once a day Black Cohosh 540 MG Capsule as directed Orally Gentle Laxative 5 MG Tablet Delayed Release 1 tablet as needed Orally Once a day Rizatriptan Benzoate 10 MG Tablet 1 tablet Orally Once a day, may repeat in one hour As neededMedication List reviewed and reconciled with the patientTaking Famotidine 40 MG Tablet 1 tablet Orally twice a day Taking traZODone HCl 100 MG Tablet 1 tablet at bedtime Orally Once a day Taking Pantoprazole Sodium 40 MG Tablet Delayed Release 1 tablet 1/2 to 1 hour before morning meal Orally Once a day Taking Levothyroxine Sodium 100 MCG Tablet 1 tablet in the morning on an empty stomach Orally Once a day Taking Black Cohosh 540 MG Capsule as directed Orally Taking Gentle Laxative 5 MG Tablet Delayed Release 1 tablet as needed Orally Once a day Taking Rizatriptan Benzoate 10 MG Tablet 1 tablet Orally Once a day, may repeat in one hour As neededMedication List reviewed and reconciled with the patient * Allergies: N o Known Drug AllergyNo Known Food Allergy Objective: * Vitals: H t: 5', Wt: 100, BMI:19.53, BP: 92/56, HR: 55, Temp: 98.1, Ht-cm: 152.4, Wt-k.36. She now weighs 100 pounds. * Examination: G eneral Examination: GENERAL APPEARANCE: p leasant, well nourished, well developed, in no acute distress, calm and relaxed, underweight, woman. HEAD: a traumatic, normocephalic. EYES: e [place], perrla, anicteric, conjugate. EARS: n ormal. NOSE: s eptum intact. ORAL CAVITY: n ormal, unremarkable. NECK/THYROID: n o jugular venous distention, no carotid bruit, thyroid unremarkable. LYMPH NODES: n o enlarged lymph nodes,spleen normal. SKIN: n o suspicious lesions, anicteric. HEART: n o clicks, gallops, murmurs, or rubs, regular rhythm, S1, S2 normal, no s3, or vascular bruits. LUNGS: c lear to auscultation . BREASTS: no masses palpable bilaterally. ABDOMEN: b owel sounds normal, no ascites, no organomegaly, no mass. RECTAL EXAM: n ot examined. MUSCULOSKELETAL: P ain and contraction of the muscles of the upper extremities with mild weakness both. PERIPHERAL PULSES: n ormal. NEUROLOGIC: a lert and oriented, cranial nerves 2-12 grossly intact, deep tendon reflexes 2+ symmetrical, motor strength normal lower extremities, sensory exam intact, Pain and weakness upper extremity, range of motion, normal in the neck. PSYCH: a lert, oriented. Assessment: * Assessment: 1. A NA positive - R76.8 (Primary) N otes :She has a family history of lupus. The significance of this value is unclear. She is referred to rheumatology for an opinion. 2 . H ypothyroidism, unspecified type - E03.9 N otes :She was recently switched from [place] thyroid 2 levothyroxine. Recent evaluation not available. 3 . U pper extremity weakness - R29.898 N otes :Cause of this is unclear. She is being referred to rheumatology as well as to physical therapy. 4 . U nderweight - R63.6 N otes :Her body mass index is 19. She weighs 100 pounds. She has gained 4 pounds since last summer. Plan: * Treatment: 2. H ypothyroidism, unspecified type Referral To:V[facility]y Robles Endocrin[facility] Reason:hypothyroidism evaluate and treatment 3. U pper extremity weakness Referral To:[facility] Reason:positive RAY ? lupus evaluate and treatment 4. O thers Continue Famotidine Tablet, 40 MG, 1 tablet, Orally, twice a day; C ontinue traZODone HCl Tablet, 100 MG, 1 tablet at bedtime, Orally, Once a day; C ontinue Pantoprazole Sodium Tablet Delayed Release, 40 MG, 1 tablet 1/2 to 1 hour before morning meal, Orally, Once a day; C ontinue Levothyroxine Sodium Tablet, 100 MCG, 1 tablet in the morning on an empty stomach, Orally, Once a day; Continue Black Cohosh Capsule, 540 MG, as directed, Orally; C ontinue Gentle Laxative Tablet Delayed Release, 5 MG, 1 tablet as needed, Orally, Once a day; C ontinue Rizatriptan Benzoate Tablet, 10 MG, 1 tablet, Orally, Once a day, may repeat in one hour As needed. ? Referral To:Vitaly Robles Endocrinology Reason:hypothyroidism evaluate and treatment * Procedure Codes: * Preventive Medicine: Counseling: C are goal follow-up plan: Counseling for abnormal BMI given Y es Below Normal BMI Follow-up D ietary education for weight gain * Follow Up: I f ever needed (Reason: ov) * Images: * Sign off status: Completed true * Provider: Jessica Bowling MD Date: 0 12/23/2024 Generated for Penelope torres/Cuong/Tara on: 04:00 PM EST History and Physical Notes * Examination Category Sub-Category Detail Notes General Examination GENERAL APPEARANCE: pleasant , well nourished, well developed, in no acute distress, calm and relaxed, underweight, woman HEAD: atraumatic, normocep halic EYES: eomi, perrla, anicte huey, conjugate EARS: normal NOSE: septum intact NECK/THYROID: no jugular venous di stention, no carotid bruit, thyroid unremarkable HEART: no clicks, gallops, murmurs, or rubs, regular rhythm, S1, S2 normal, no s3, or vascular bruits LUNGS: clear to auscultatio n ABDOMEN: bowel sounds normal, no ascites, no organomegaly, no mass NEUROLOGIC: alert and oriented, cranial nerves 2-12 grossly intact, deep tendon reflexes 2+ symmetrical, motor strength normal lower extremities, sensory exam intact, Pain and weakness upper extremity, range of motion, normal in the neck SKIN: no suspicious lesion s, anicteric PERIPHERAL PULSES: normal BREASTS: no masses palpable b ilaterally MUSCULOSKELETAL: Pain and contraction of the muscles of the upper extremities with mild weakness both LYMPH NODES: no enlarged lymph no yancy,spleen normal RECTAL EXAM: not examined PSYCH: alert, oriented ORAL CAVITY: normal, unremarkable Consultation Request Notes Referral Date Referring Provider Referred Provider Not es 12/23/2024 Tushar Bowling Marc hypothyr oidism evaluate and treatment 12/23/2024 Tushar Bowling ARTHRITIS, TREAT [facility] positive RAY ? lupus evaluate and treatment
--- OUTSIDE RECORDS SUMMARY | 2024-12-27 04:52 | XMS_ITS ---
Author Organization Tushar Bowling III, MD Address [address] [address] Care Team Providers Care Irrigator Name Role Phone Carri Guillermo Primary Care Provider Dr. Tushar Martinez III Unavailable [phone] REASON FOR VISIT order sent to [facility] Encounters Encounter Location Date Provider Diagnosis Tushar Bowling III, MD [address] [place] [address] [place] [address] 12/27/2024 Tushar Bowling Plan Of Treatment No Information Progress Notes * Brittney COONOB:[birth year] 74 (48 yo F)Acc No.[id number]:12/27/2024 Patient: Juaquin JOHNSONEva SAINI :1975 A ge:48 Y S ex:Female Address:[address] [place] [address], [address] * true * Date: Generated for Ezioi ng/Falaurag/eTransmitting on: 04:02 PM EST
--- OUTSIDE RECORDS SUMMARY | 2024-12-29 04:10 | XMS_ITS ---
Author Organization Tushar Bowling III, MD Address [address] [place] [address] Care Team Providers Care Adult Basic Education Teacher Name Role Phone Carri Guillermo Primary Care Provider Dr. Tushar Martinez III Unavailable REASON FOR VISIT consultation at [facility] Encounters Encounter Location Date Provider Diagnosis Tushar Bowling III, MD [address] [place] [address] [place] [address] 12/29/2024 Tushar Bowling Plan Of Treatment No Information Progress Notes * Brittney COONOB:[birth year] (49 yo F)Acc No.[id number]:12/29/2024 Patient: Juaquin JOHNSONEva SAINI :1975 A ge:49 Y S ex:Female Address:[address] [place] [address], [address] * true * Date: Generated for Ezioi melissa/Cuong/eTransmitting on: 04:01 PM EST
--- NOTE | 2025-07-12 12:14 | MHC.OFFVIS ---
Intake Visit Reasons: 3MRLS Allergies No Known Allergies (No Known Allergies*) Allergy (Verified 12/28/24 07:12) HPI Comments Details: 49 years old woman with migraine, restless legs syndrome, and insomnia. She is presenting with a chief complaint of poor sleep. She attributes her insomnia to uncontrolled restless legs syndrome, stating her legs are going crazy at night. Previous medication trials, including Ropinirole, have not been effective for her RLS. For sleep, the patient has been on trazodone 100 mg for approximately 8-9 years, but it is no longer effective for sleep maintenance. She has tried dmeo-ulx-cfkvyxy sleep aids without success and has not been prescribed other medications for sleep. She reports needing to take caffeine pills to function during the day due to not sleeping at night. The patient describes herself as a high speed person naturally and feels wired all day. She recently reduced her workload from two jobs to one. She is 49 years old and states she is in menopause, which may be contributing to her insomnia and mood symptoms. [facility] Medical History (Updated 07/12/25 @ 12:26 by Leslie Hunt MD) Encephalopathy Insomnia Paresthesias Review of Systems Narrative - Neurological: Reports uncontrolled restless legs syndrome. - Psychiatric: Reports significant insomnia with difficulty maintaining sleep. - Reports feeling anxious and wired all day, with racing thoughts at night. - Denies depression. - Constitutional: Reports using caffeine pills to stay awake. - Respiratory: Denies snoring. - Endocrine: Reports being in menopause. Physical Exam Neuro Other: Mental Status: Alert and oriented to person, place, and time. Normal attention. Normal spontaneous speech, fluency, and comprehension. Cranial Nerves: CN II: Visual gann full to confrontation, visual acuity intact. CN III, IV, : Pupils equal, round, reactive to light and accommodation. Extraocular movements are normal. CN V: Facial sensation is normal. CN VII: Facial movements symmetrical. CN VIII: Hearing intact to bedside conversation is normal. CN IX, X: Palate elevates symmetrically. CN XI: Shoulder shrug and head turn symmetrical. CN XII: Tongue midline without atrophy or fasciculations. Extrapyramidal: Full facial expressions and blinking. No rigidity. Movements are appropriate with no tremor or abnormality. Speech: Normal; no dysarthria or tremor. Assessment & Plan Assessment & Plan (1) Migraine without aura, not intractable, without status migrainosus: Comment: EMG/NCS LEs at off in January 2025: WNL CT brain WO at [facility] in December 2024: WNL MRI brain WWO at [facility] in December 2024: WNL Code(s): G43.009 - Migraine without aura, not intractable, without status migrainosus Category: Medical (2) RLS (restless legs syndrome): Comment: Meds tried: Gabapentin, ropinorole Code(s): G25.81 - Restless legs syndrome Category: Medical (3) Insomnia: Comment: Meds tried: Gabapentin, ropinirole, trazodone, OTS meds Code(s): G47.00 - Insomnia, unspecified Category: Medical Qualifiers: Insomnia type: psychophysiologic Qualified Code(s): F51.04 - Psychophysiologic insomnia (4) Anxiety: Code(s): F41.9 - Anxiety disorder, unspecified Category: Medical Plan Impression: a: Restless leg syndrome b: Insomnia, psychophysiological type c: Migraine w/o aura d: Anxiety with possibility of menopausal syndrome Rec: a: Stop ropinorole and start pramipaxole 0.25mg one at night for RLS b: Stop trazodone, and start Mirtazapine 30mg one at bedtime c: Rizatriptan PRN for headaches d: Escitaloprim 5mg, 1/2 in am I discussed with the patient that her poor sleep is likely a combination of uncontrolled restless legs syndrome and anxiety, which can be worsened by her menopausal state. We will change her medication for RLS from ropinirole to pramipexole. For her insomnia, we will stop the trazodone as it is no longer effective and start mirtazapine. I also recommended starting a low dose of escitalopram for her anxiety to help with feeling wired. I clarified that a sleep study is not necessary at this time as her symptoms are not suggestive of obstructive sleep apnea. I confirmed with the patient that none of the prescribed medications are narcotics or addictive. We will follow up in two months to evaluate the effectiveness of these changes. Medications: New pramipexole 0.25 mg PO BEDTIME 90 tabs 0RF mirtazapine 30 mg PO BEDTIME 60 tabs 0RF escitalopram oxalate 0.5 mg (0.1 x 5 mg) PO DAILY 30 tabs 0RF Discontinued trazodone Discontinued Reason: Doctor's Order 100 mg PO BEDTIME PRN 90 tabs 0RF for insomnia ropinirole Discontinued Reason: Doctor's Order 0.25 mg PO BEDTIME 90 tabs 0RF Coding Level of Care Code Est Pt Level 4 (99247) Diagnoses Migraine without aura, not intractable, without status migrainosus G43.009 RLS (restless legs syndrome) G25.81 Psychophysiological insomnia F51.04 Insomnia type: psychophysiologic Anxiety F41.9
--- OUTSIDE RECORDS SUMMARY | 2025-07-12 16:01 | XMS_ITS | Encounter Summary ---
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 Procedures NM Gastric Emptying Dejuan Reid MD Phone: tel: fax: [email or web address] Referral ID Status Reason Start Date Expiration Date Visits Re quested Visits Authorized [id number] Closed 01/28/2023 1 1 Encounter Details Date Type Department Care Team (Latest Contact Info) Description 01/28/2023 Transcribe Orders Virtual Department [address] [place] [address] Dejuan Reid MD [address] [place] [phone] [email or web address] Gastroesophageal reflux disease without esophagitis (Primary Dx); 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 Not on manolo e 11/08/2022 Are you concerned about learning? Not on file 11/08/2022 No 11/08/2022 No 11/08/2022 Digital Access Answer Date Recorded No 12/05/2022 No 12/05/2022 Reliable internet access at home? Not on file 12/05/2022 Device with a working camera? Not on file Comments No Sex and Gender Information Value Date Recorded Sex Assigned at Female 05/24/2021 7:57 AM EST Legal Sex Female 1:26 PM EST Gender Identity Female 05/29/2022 6:10 AM EST Sexual Orientation Straight 05/29/2022 6: 10 AM EST documented as of this encounter Plan of Treatment Not on file documented as of this encounter Results * NM GASTRIC EMPTYING SOLID PHASE (02/06/2023 2:46 PM EDT) Anatomical Region Laterality Modality Abdomen, Pelvis Nuclear Medicine 02/07/2023 1:12 AM EDT Impressions 02/07/2023 1:13 AM EDT Gastric emptying study demonstrates abnormally delayed gastric emptying, as defined by emptying less than 90% at four hours. Narrative 02/07/2023 1:13 AM EDT NM GASTRIC EMPTYING SOLID PHASE Radionuclide gastric emptying scan: COMPARISON: None TECHNIQUE: 1.0 mCi technetium 99m sulphur colloid was given orally as a standard solid phase meal. Intermittent upright imaging of the abdomen was performed immediately, and at 1, 2, and 4 hours. 100% of the standardized meal was consumed. FINDINGS: Gastric emptying at 1 hr is 17.1 percent. Gastric emptying at 2 hrs is 30.3 percent. Gastric emptying at 4 hrs is 67.3 percent. According to accepted international standards using this technique, median normal values for emptying are: 31% at 1hr, 76% at 2hrs, and 99% at 4 hours. 5th percentile values for emptying are: 10% at 1 hr, 40% at 2hrs, and 90% at 4 hours. Procedure Note Matthew Weldon MD - 02/07/2023 NM GASTRIC EMPTYING SOLID PHASE Radionuclide gastric emptying scan: COMPARISON: None TECHNIQUE: 1.0 mCi technetium 99m sulphur colloid was given orally as a standardsolid phase meal. Intermittent upright imaging of the abdomen wasperformed immediately, and at 1, 2, and 4 hours. 100% of the standardizedmeal was consumed. FINDINGS: Gastric emptying at 1 hr is 17.1 percent. Gastric emptying at 2 hrs is30.3 percent. Gastric emptying at 4 hrs is 67.3 percent. According to accepted international standards using this technique, mediannormal values for emptying are: 31% at 1hr, 76% at 2hrs, and 99% at 4 hours. 5th percentile values for emptying are: 10% at 1 hr, 40% at 2hrs, and 90% at 4 hours. IMPRESSION: Gastric emptying study demonstrates abnormally delayed gastric emptying,as defined by emptying less than 90% at four hours. 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 It is not the complete legal health record.[facility]
--- OUTSIDE RECORDS SUMMARY | 2025-07-12 16:01 | XMS_ITS | Encounter Summary ---
Author Organization [facility] Address [address] [place] [id number] Phone Care Team Providers Care Tanning Solution Maker Name Role Phone Lindsay Christopher Primary Care Provider [phone] Carri Guillermo Primary Care Provider [phone] Encounter Details Date Type Department Care Team (Late st Contact Info) Description 08/15/2021 Procedure Pass [facility], [address] [place] [address] Social History Tobacco Use Types Packs/Day Years [...] on filedocumented in this encounter Care Teams Tanning Solution Maker Relationship Specialty Start Date End Date Lindsay Christopher PA [address] [place] [phone] PCP - General Family Medicine 03/27/21 02/22/24 Carri Guillermo PA [address] [place] [id number] PCP - General Physician Marketing Technologist 02/23/24 documented as of this encounter Additional Source Comments The information contained in this document represents components of the legal health record. It is not the complete legal health record.[facility]
--- OUTSIDE RECORDS SUMMARY | 2025-07-12 16:01 | XMS_ITS | Clinical Summary ---
Author Organization [facility] Address [address] [facility] [place] [facility] [address] [place] [address] Care Team Providers Care Test Borer Name Role Phone Lavon Park MD Primary Care Provider Allergies No known active allergies Medications famotidine (Pepcid) 40 mg tablet Take 40 mg by mouth twice daily. Active pantoprazole (ProtoNix) 40 mg EC tablet Take 40 mg by mouth twice daily. Active rizatriptan LEVEL VIAL CURVATURE GAUGER (Maxalt-LEVEL VIAL CURVATURE GAUGER) 10 mg disintegrating tablet Take 10 mg by mouth if needed. Active [place] Thyroid 60 mg tablet Take 60 mg [...] FIT 1974 FOBT 1974 HIV Screening 1974 Lipid Panel 1974 Sigmoidoscopy 1974 MMR Vaccines (1 of 1 - Standard series) 12/29/1975 Hepatitis C Screening 1992 Hepatitis B Vaccines (1 of 3 - 19+ 3-dose series) 1993 Pap Smear 12/29/1995 Cervical Cancer Screening 2004 HPV/Cotest 2004 Mammogram 2014 Depression Screening 07/14/2024 Pneumococcal Vaccine: 50+ Years (1 of 1 - PCV) 2024 Zoster Vaccines (1 of 2) 2024 COVID-19 Vaccine (1 - season) 2025 Influenza Vaccine (#1) 2025 , 05/11/2019, 04/21/2018, Additional history exists DTaP/Tdap/Td Vaccines (3 - Td or Tdap) 05/29/2032 05/29/2022, 04/21/2018, 10/12/2004 HIB Vaccines Aged Out No longer eligi ble based on patient's age to complete this topic HPV Vaccines (No Doses Required) Completed Hepatitis A Vaccines Aged Out No long [...] this topic Insurance GENERIC COMMERCIAL Care Teams Test Borer Relationship Specialty Start Date End Date Lavon Park MD [address] [place] [address] PCP - General 01/06/24
--- OUTSIDE RECORDS SUMMARY | 2025-07-12 16:01 | XMS_ITS | Encounter Summary ---
Author Organization [facility] Address [address] [place] [address] Phone Care Team Providers Care Metallurgical Analyst Name Role Phone Lindsay Christopher Primary Care Provider [phone] Carri Guillermo Primary Care Provider [phone] Encounter Details Date Type Department Care Team (Late st Contact Info) Description 03/27/2021 Procedure Pass [facility] Endoscopy Admitting Dept Virtual Department [address] [place] [address] Social History Tobacco Use Types Packs/Day Years [...] on filedocumented in this encounter Care Teams Metallurgical Analyst Relationship Specialty Start Date End Date Lindsay Christopher PA [address] [place] [address] PCP - General Family Medicine 03/27/21 02/22/24 Carri Guillermo PA [address] [place] [address] PCP - General Physician Community Service Organization Director 02/23/24 documented as of this encounter Additional Source Comments The information contained in this document represents components of the legal health record. It is not the complete legal health record.[facility]
--- OUTSIDE RECORDS SUMMARY | 2025-07-12 16:01 | XMS_ITS | Encounter Summary ---
Author Organization [facility] Address [facility] [employer] [address] [address] Phone Care Team Providers Care Grade Checker Name Role Phone Carri Guillermo Primary Care Provider [phone] Encounter Details Date Type Department Care Team (Late st Contact Info) Description 03/03/2024 Procedure Pass [facility], Ct Scan - [address] [address] Social History Tobacco Use Types Packs/Day Years [...] with a working camera? Not on file Intimate Partner Violence Answer Date R ecorded Are you denied basic needs s uch as food, clothing, or medical care? No 03/03/2024 In the past 12 months have y ou been in a relationship with a person who hurts, threatens, or tries to control you? No 03/03/2024 Are you denied basic needs s uch as food, clothing, or medical care? No 03/03/2024 In the past 12 months have y ou been in a relationship with a person who hurts, threatens, or tries to control you? No 03/03/2024 Comments No Sex and Gender Information Value [...] on filedocumented in this encounter Care Teams Grade Checker Relationship Specialty Start Date End Date Carri Guillermo PA [address] [place] [address] PCP - General Physician Saw Filer 02/23/24 documented as of this encounter Additional Source Comments The information contained in this document represents components of the legal health record. It is not the complete legal health record.[facility]
--- OUTSIDE RECORDS SUMMARY | 2025-07-12 16:01 | XMS_ITS | Encounter Summary ---
Author Organization [facility] Address [address] [place] [address] Phone Care Team Providers Care Opto Mechanical Technician Name Role Phone Lindsay Christopher Primary Care Provider [phone] Carri Guillermo Primary Care Provider [phone] Encounter Details Date Type Department Care Team (Late st Contact Info) Description 09/25/2021 Procedure Pass [facility] Endoscopy Admitting Dept Virtual Department [address] [place] [address] Social History Tobacco Use Types Packs/Day Years [...] on filedocumented in this encounter Care Teams Opto Mechanical Technician Relationship Specialty Start Date End Date Lindsay Christopher PA [address] [place] [address] PCP - General Family Medicine 03/27/21 02/22/24 Carri Guillermo PA [address] [place] [address] PCP - General Physician Retention Manager 02/23/24 documented as of this encounter Additional Source Comments The information contained in this document represents components of the legal health record. It is not the complete legal health record.[facility]
--- OUTSIDE RECORDS SUMMARY | 2025-07-12 16:01 | XMS_ITS | Encounter Summary ---
Author Organization [facility] Address [address] [place] [address] [place] [address] Phone Care Team Providers Care Scutcher Tender Name Role Phone Unknown, Unknown Primary Care Provider Lindsay Aden Primary Care Provider [phone] Carri Guillermo Primary Care Provider [phone] Encounter Details Date Type Department Care Team (Late st Contact Info) Description 12/15/2020 Ancillary Orders Virtual Department [address] [place] [address] Lindsay Christopher PA [address] [place] [phone] Dysphagia, unspecified type Social History Tobacco Use Types Packs/Day Years Used Date Smoking Tobacco: Never Smokeless Tobacco: Never Comments Unknown Sex and Gender Information Value Date Recorded Sex Assigned at Female 05/24/2021 7:57 AM EST Legal Sex Female 1:26 PM EST Gender Identity Female 05/29/2022 6:10 AM EST Sexual Orientation Straight 05/29/2022 6: 10 AM EST documented as of this encounter Plan of Treatment Not on file documented as of this encounter Results * FL BARIUM SWALLOW ESOPHAGRAM DOUBLE CONTRAST (12/19/2020 9:07 AM EDT) Anatomical Region Laterality Modality Chest Computed Radiogr aphy 12/19/2020 8:49 AM EDT Impressions 12/19/2020 9:16 AM EDT 1.Normal esophagram. No findings to account for dysphagia. 2.Moderate C5-6 disc disease. Narrative 12/19/2020 9:16 AM EDT COMPARISON: None. BARIUM SWALLOW FINDINGS: Shell Sieve Operator lateral neck radiograph was obtained. Moderate C5-6 disc space narrowing with minimal C5 retrolisthesis. Soft tissues are normal. A double contrast barium swallow was performed. Low dose pulsed fluoroscopy was utilized with limited exposures to reduce radiation dose. Esophagus is normal in contour and motility. No stricture, mass, ulceration, hiatal hernia or reflux. Barium tablet passed into the stomach without difficulty. Procedure Note Vinay Huang MD - 12/19/2020 COMPARISON: None. BARIUM SWALLOW FINDINGS: Shell Sieve Operator lateral neck radiograph was obtained. Moderate C5-6 disc spacenarrowing with minimal C5 retrolisthesis. Soft tissues are normal. A double contrast barium swallow was performed. Low dose pulsedfluoroscopy was utilized with limited exposures to reduce radiation dose.Esophagus is normal in contour and motility. No stricture, mass,ulceration, hiatal hernia or reflux. Barium tablet passed into the stomachwithout difficulty. IMPRESSION: 1.Normal esophagram. No findings to account for dysphagia. 2.Moderate C5-6 disc disease. Lindsay WALTERS [facility] Final Result documented in this encounter Visit Diagnoses Diagnosis Dysphagia, unspecified type Dysphagia, unspecified type documented in this encounter Care Teams Scutcher Tender Relationship Specialty Start Date End Date Unknown, Unknown, MD PCP - General 06/10/20 03/26/21 Lindsay Christopher PA [address] [place] [address] PCP - General Family Medicine 03/27/21 02/22/24 Carri Guillermo PA [address] [place] [address] PCP - General Physician Clipper And Turner 02/23/24 documented as of this encounter Additional Source Comments The information contained in this document represents components of the legal health record. It is not the complete legal health record.[facility]
--- OUTSIDE RECORDS SUMMARY | 2025-07-12 16:01 | XMS_ITS | Encounter Summary ---
Author Organization [facility] Address [address] [place] [address] Phone Care Team Providers Care Qc Manager Name Role Phone Carri Guillermo Primary Care Provider [phone] Encounter Details Date Type Department Care Team ([facility] st Contact Info) Description 02/23/2024 Procedure Pass [facility] Endoscopy Admitting Dept Virtual Department [address] [place] [address] Social History Tobacco Use Types Packs/Day Years [...] on filedocumented in this encounter Care Teams Qc Manager Relationship Specialty Start Date End Date Carri Guillermo PA [address] [place] [address] PCP - General Physician Java Developer With Security Clearance 02/23/24 documented as of this encounter Additional Source Comments The information contained in this document represents components of the legal health record. It is not the complete legal health record.[facility]
--- OUTSIDE RECORDS SUMMARY | 2025-07-12 16:01 | XMS_ITS | Patient Health Record ---
Author Organization Tushar Bowling III, MD Address [address] [place] [address] [place] [address] Care Team Providers Care Deputy Jailer Name Role Phone Eagle Carri Primary Care Provider Dr. Tushar Martinez III [facility] Allergies Allergen (clinical drug ingredient) Drug/Non Drug [...] Provider Speciality Internal M edicine Referred Provider [facility] Referred Provider Specialty Rheumatology General Notes Maritza Dinah CMA 12/29 09:37:39 AM >[facility] 12/31/2024 02:29:37 PM > Referral, progress note and medical records faxed.Fauzia Amber 01/03/2025 02:58:57 PM >Spoke with Emeka from [facility], stated they have not received the referral and needs to have it refaxed. Confirmed the fax number was correct. Referral refaxedFauzia Amber 01/04/2025 02:40:59 PM > Spoke with Elisa from [facility]. They have NOT received the referral. Confirmed fax number and was given an Alternate fax number [phone]. Referral refaxFauzia gong Amber 01/05/2025 11:12:18 AM > Office has received referral and it is currently under review by the doctor. Stated when referral is received back from doctor they will contact patient to schedule appointment. Spoke with Emeka from [facility], Maritza Dinahlinda DE LA ROSA 01/20/2025 02:48:11 PM >Called [facility] pt has appt on 03/15/2025 at 10:15am Referral Priority Urgent Referral Appointment Date 03/15/2025 Medications Medication SIG (Take, Route, Frequency, Duration) [...] Problem Status W/U Status Risk Notes Problem [id number] RAY positive (R76.8) Active confirmed She has a family history of lupus. The significance of this value is unclear. She is referred to rheumatology for an opinion. Problem [id number] Upper extremity weakness (R29.898) Active confirmed Cause of this is unclear. She is being referred to rheumatology as well as to physical therapy. Problem [id number] Hypothyroidism , unspecified type (E03.9) Active confirmed She was recently switched from Lane thyroid 2 levothyroxine. Recent evaluation not available. [...] Date Provider Diagnosis Tushar Bowling III, MD [address] [place] [address] [place] [address] 12/23/2024 Tushar Bowling RAY positive R76.8 ; Hypothyroidism, unspecified type E03.9 ; Upper extremity weakness R29.898 and Underweight R63.6 Tushar Bowling III, MD [address] [place] [address] [address] [place] [address] 12/27/2024 Tushar Bowling III, MD [address] [place] [address] [address] [place] [phone] 12/29/2024 Tushar Bowling Assessments Encounter Date Diagnosis (ICD Code) Assessment Notes Treatment Notes Treatment Clinical Notes 12/23/2024 RAY positive (ICD-10 - R76.8) She has a family history of lupus. The significance of this value is unclear. She is referred to rheumatology for an opinion. 12/23/2024 Hypothyroidism, unspecified type (ICD-10 - E03.9) She was recently switched from Lane thyroid 2 levothyroxine. Recent evaluation not available. [...] Insured Coverage Start Date Coverage End Date [address] [place] [address] [id number] Eva Alejandra Self - patient is the insured [facility] [address] [place], [place] [address] [id number] Tigre Alejandra Spouse - patient is the spouse of the insured Medical (General) History Medical History History ICD Code Tish's thyroiditis Positive. DNA Upper extremity weakness Hypothyroidism Surgical History Surgery Date(Month/Year) Root canal 2023
--- OUTSIDE RECORDS SUMMARY | 2025-07-12 16:01 | XMS_ITS | Clinical Summary ---
Author Organization [facility] Address [facility] [employer] [address] [address] Phone Care Team Providers Care Epilepsy Physician Name Role Phone Carri Guillermo Primary Care Provider [phone] Allergies No known active allergies Medications traZODone (DESYREL) 100 MG tablet Take 100 mg by mouth nightly at bedtime. Active rizatriptan (MAXALT-SLATE HANDLER) 10 MG disintegrating tablet TAKE 1 TAB NEEDED FOR SEVERE MIGRAINE MAY REPEAT ONCE IN ONE HOUR 3 Active famotidine (PEPCID) 40 MG tablet TAKE 1 TABLET BY MOUTH TWICE A DAY FOR 90 DAYS 3 Active pantoprazole (PROTONIX) 40 MG tablet Take 40 mg by mouth daily. Active ARMOUR THYROID 60 mg Tab Take 60 mg by mouth every morning. 4 Active ibuprofen (ADVIL,MOTRIN) 600 MG tablet TAKE 1 TABLET BY MOUTH 4 TIMES A DAY NEEDED FOR PAIN 4 Active amoxicillin (AMOXIL) 500 MG capsule Take 500 mg by mouth 3 (three) times a day. 4 Active BLACK COHOSH ORAL Take 1 capsule by mouth 2 (two) times a day (once in the morning and once in the afternoon). Active meclizine (ANTIVERT) 25 mg tablet Take 1 tablet (25 mg total) by mouth 3 (three) times a day as needed for dizziness. 30 tablet 5 Active Active Problems Problem Noted Date Diagnosed Date Migraine headache 11/18/2022 11/18/2022 Mass of breast 08/30/2010 11/18/2022 Overview (11/18/2022): s/p in office left breast core bx- benign fibroglandular breast tissue with focal fibroadenomatous change 2-16- s/p in office left breast core bx- benign fibroglandular breast tissue with focal fibroadenomatous change 216- Resolved Problems Problem Noted Date Diagnosed Date Resolved Date Hypothyroidism 11/18/2022 11/18/2022 12/25/2022 Immunizations Immunization Administration Dates Next Due INFLUENZA, SPLIT VIRUS, TRIVALENT W/ PRESERVATIV E IM 05/03/2013 Influenza Quadrivalent w/ Preservative IM 2017 Influenza Recombinant Flavio valent Preservative Free IM 05/12/2020,05/11/2019 Td, unspecified formulation 10/12/2004 Tdap 05/29/2022,04/21/2018 Social History Tobacco Use Types Packs/Day Years Used Date Smoking Tobacco: Never Smokeless Tobacco: Never Alcohol Use Standard Drinks/Week Comments Yes 0 (1 standard drink = 0.6 oz pur e alcohol) very rare Education Answer Date Recorded Are you interested in more education? Not on manolo e 11/08/2022 Are you concerned about learning? Not on file 11/08/2022 No 11/08/2022 No 11/08/2022 Food Answer Date Recorded Within the past 6 months we worried whether our food would run out before we got money to buy more. Never True 12/21/2024 Within the past 6 months the food we bought just didn't last and we didn't have enough money to get more. Never True Residential Stability Answer Date Recor ded What is your housing situation today? I have matthias sing 12/21/2024 How many times have you move d in the past 12 months? Zero (I did not move) 12/21/2024 Paying for Meds Answer Date Recorded Do you have trouble paying for medicines? No 12/21/2024 Paying Utility Bills Answer Date Record ed Do you have trouble paying your heating or elect ricity bill? No 12/21/2024 Transportation Answer Date Recorded Has the lack of transportati on kept you from medical appointments or from getting medications? No 12/21/2024 Digital Access Answer Date Recorded No 12/21/2024 Yes 12/21/2024 Do you have reliable internet access at home? Ye s 12/21/2024 Do you have a device (e.g., phone, tablet, computer) with a working camera? Yes 12/21/2024 Intimate Partner Violence Answer Date R ecorded Are you denied basic needs s uch as food, clothing, or medical care? No 12/21/2024 In the past 12 months have y ou been in a relationship with a person who hurts, threatens, or tries to control you? No 12/21/2024 Are you denied basic needs s uch as food, clothing, or medical care? No 12/21/2024 In the past 12 months have y ou been in a relationship with a person who hurts, threatens, or tries to control you? No 12/21/2024 Comments No Sex and Gender Information Value Date Recorded Sex Assigned at Female 05/24/2021 7:57 AM EST Legal Sex Female 1:26 PM EST Gender Identity Female 05/29/2022 6:10 AM EST Sexual Orientation Straight 05/29/2022 6: 10 AM EST Last Filed Vital Signs Vital Sign Reading Time Taken Comments Blood Pressure 101/67 12/21/2024 10:54 PM EDT Pulse 53 12/21/2024 11:45 PM EDT Temperature 36.5 C (97.7 F) 12/21/2024 10:54 PM EDT Respiratory Rate 16 12/21/2024 11:45 PM EDT Oxygen Saturation 98% 12/21/2024 11:45 PM EDT Inhaled Oxygen Concentration - - Weight 46.3 kg (102 lb) 12/21/2024 5:43 PM EDT Height 152.4 cm (5') 12/21/2024 5:43 PM EDT Body Mass Index 19.92 12/21/2024 5:43 PM EDT Plan of Treatment Health Maintenance Due Date Last Done Comments LIPID PANEL 1974 DEPRESSION SCREENING 1986 HEPATITIS C SCREENING 1992 HIV ONE-TIME SCREENING (18-65 YEARS) 1992 PAP SMEAR 12/29/1995 MAMMOGRAM 2014 COLOGUARD 12/29/2019 FIT TEST 12/29/2019 FOBT 12/29/2019 SIGMOIDOSCOPY 12/29/2019 VIRTUAL COLONOSCOPY 12/29/2019 PNEUMOCOCCAL VACCINES (50+ years) (1 of 1 - PCV) 2024 ZOSTER VACCINES (1 of 2) 2024 INFLUENZA VACCINE (#1) 2025 0, 05/11/2019, 04/21/2018, Additional history exists COVID-19 VACCINE ( - 2024- season) 2025 COLONOSCOPY 02/22/2029 02/23/2024, 03/27/2021 COLORECTAL CANCER SCREENING 02/22/2029 Adult Td,Tdap Booster 05/29/2032 05/29/2022 , 04/21/2018, 10/12/2004 RSV VACCINE (1 - 1-dose 75+ series) 2049 SMOKING STATUS SCREENING (Once After 26 Yrs) Completed 02/23/2024 HEPATITIS A VACCINES Aged Out No long er eligible based on patient's age to complete this topic HIB VACCINES Aged Out No longer eligi ble based on patient's age to complete this topic MENINGOCOCCAL VACCINES (ACWY) Aged Out No longer eligible based on patient's age to complete this topic MENINGOCOCCAL VACCINES (B) Aged Out N o longer eligible based on patient's age to complete this topic Medical Devices Implanted Type Area Lock Expert Device Identifier Shelf Expiration Date Model / Serial / Lot Plate And Screws Rt. Arm Procedures Procedure Name Priority Date/Time Associated Diagnosis Comments ENDOSCOPY, COLON 02/23/2024 7:23 AM EDT from Last 3 Months or Most Recently Relevant to Health Maintenance Results * ENDOSCOPY, COLON (02/23/2024 7:23 AM EDT) Narrative Transcriptions Dejuan Barlow MD - 02/23/2024 7:23 AM EDT [facility] Patient Name: Eva Alaina Attending MD:: DEJUAN BARLOW MD, Procedure Date: 02/23/2024 7:23 AM Date of : 1975 Age: 48 Admit Type: Outpatient Gender: Female Room: [facility] 02 Referring MD: Carri Guillermo Exam Type: Colonoscopy Indications: Last colonoscopy: March 2021, Iron deficiency anemia Medications: Propofol per Anesthesia, Monitored AnesthesiaCare Procedure: Informed consent was obtained from the patientafter discussion of the indications, limitations, alternatives, benefits, and risks of the procedure. Risks specifically discussed include but are not limited to medication reactions, missed lesions, bleeding, perforation, or the need for emergent surgery. Throughout the procedure, the patient's blood pressure, pulse, end-tidal CO2, and oxygensaturations were monitored continuously. The Olympus adult variable colonoscope [id number] #[id number] was introduced through the anus and advanced to the terminal ileum, with identification of theappendiceal orifice and IC valve. The colonoscopy was performed without difficulty. The patient tolerated the procedure well. The quality of the bowelpreparation was good. The terminal ileum, ileocecal valve, appendiceal orifice, and rectum werephotographed. Complications: No immediate complications. Estimated blood loss:None. Findings: The terminal ileum appeared normal. This wasbiopsied with a cold forceps for histology. Examination of the right colon was repeated in retroflexion and again in NBI. Retroflexion wasalso performed in the rectum. The entire examined colon appeared normal. Biopsies for histology were taken with a coldforceps from the entire colon for evaluation of microscopic colitis. Impression: - The examined portion of the ileum was normal. Biopsied. - The entire examined colon is normal. - Biopsies were taken with a cold forceps from the entire colon for evaluation of microscopiccolitis. Recommendation: - Patient has a contact number available for emergencies. The signs and symptoms of potential delayed complications were discussed with thepatient. Return to normal activities tomorrow. Written discharge instructions were provided to thepatient. - Await pathology results. - Repeat colonoscopy in 5 years for screening purposes, based on family history. Dejuan Barlow DEJUAN BARLOW MD 02/23/2024 8:36:18 AM This report has been signed electronically. Number of Addenda: 0 Note Initiated On: 02/23/2024 7:23 AM Procedure Code(s): --- Professional --- 21275, Colonoscopy, flexible; with biopsy, single or multiple --- Technical --- 54820, Colonoscopy, flexible; with biopsy, single or multiple CPT copyright 2021 [employer]. All rights reserved. The codes documented in this report are preliminary and upon hand washer reviewmay be revised to meet current compliance requirements. Procedure Date: 02/23/2024 7:23:[address] [place] [address] Carri WALTERS GI PROCEDURE ORDERABLES Edited Result - Final from Last 3 Months or Most Recently Relevant to Health Maintenance Insurance [facility] [address] [facility] [address] [place] [address] [place] [place] [address] [facility] [place] [address] [facility] Care Teams Epilepsy Physician Relationship Specialty Start Date End Date Carri Guillermo PA [address] [place] [address] PCP - General Physician Microbiology Quality Control Technician 02/23/24 Additional Source Comments The information contained in this document represents components of the legal health record. It is not the complete legal health record.[facility]
--- OUTSIDE RECORDS SUMMARY | 2025-07-12 16:02 | XMS_ITS | Encounter Summary ---
Author Organization [facility] Address [address] [place] [id number] Phone Care Team Providers Care Hardboard Panel Printer Name Role Phone Unknown, Unknown Primary Care Provider Lindsay Aden Primary Care Provider [phone] Carri Guillermo Primary Care Provider [phone] Encounter Details Date Type Department Care Team (Latest Contact Info) Description 03/23/2021 Transcribe Orders [facility] Phleb Joanne [address] [address] Donna Cota CNP [address] [place] [phone] [email or web address] Dysphagia, pharyngoesophageal phase (Primary Dx); Heartburn; Family history of colon cancer Social History Tobacco Use Types Packs/Day Years Used Date Smoking Tobacco: Never Smokeless Tobacco: Never Alcohol Use Standard Drinks/Week Comments Yes 0 (1 standard drink = 0.6 oz pur e alcohol) very rare Comments Unknown Sex and Gender Information Value Date Recorded Sex Assigned at Female 05/24/2021 7:57 AM EST Legal Sex Female 1:26 PM EST Gender Identity Female 05/29/2022 6:10 AM EST Sexual Orientation Straight 05/29/2022 6: 10 AM EST documented as of this encounter Plan of Treatment Not on file documented as of this encounter Results * (ABNORMAL) CBC and differential (03/23/2021 11:24 AM EDT) WBC 3.44(L) 4.00 - 11.00 K/uL [facility] RBC 3.77 3.72 - 5.30 M/uL [facility] HGB 11.4 10.6 - 15.5 g/dL [facility] HCT 33.5 32.0 - 45.0 % [facility] PLT 170 140 - 430 K/uL [facility] MCV 88.9 78.0 - 97.0 fL [facility] MCH 30.2 25.0 - 33.0 pg [facility] MCHC 34.0 32.0 - 36.0 g/dL [facility] RDW 13.4 11.0 - 16.0 % [facility] MPV 11.1 8.4 - 12.8 fl [facility] NRBC 0.00 0 /100 WBCs [facility] ABSOLUTE NRBC 0.00 0 K/uL [facility] DIFF METHOD Auto [facility] NEUTS 60.2 43.0 - 75.0 % [facility] LYMPHS 27.3 18.2 - 47.4 % [facility] MONOS 7.8 4.00 - 11.00 % [facility] EOS 3.8 0.0 - 8.0 % [facility] BASOS 0.6 0.0 - 2.0 % [facility] Granulocytes, immature (%) 0.3 0.0 - 0.9 % [facility] ABSOLUTE NEUTS 2.07 1.80 - 7.70 K/uL [facility] ABSOLUTE LYMPHS 0.94(L) 1.00 - 3.10 K/uL [facility] ABSOLUTE MONOS 0.27 0.20 - 0.80 K/uL [facility] ABSOLUTE EOS 0.13 0.00 - 0.80 K/uL [facility] ABSOLUTE BASOS 0.02 0.00 - 0.09 K/uL [facility] Granulocytes, immature 0.01 0.00 - 0.05 K/uL [facility] Blood 03/23/2021 11:2 4 AM EDT 03/23/2021 11:27 AM EDT us Donna Cota MANAGER [employer] [facility] BLOOD BKR ORDERABLES F inal Result [facility] [address] [place] [address] documented in this encounter Visit Diagnoses Diagnosis Dysphagia, pharyngoesophageal phase- Primary Heartburn Family history of colon cancer Family history of malignant neoplasm of gastrointestinal tract documented in this encounter Care Teams Hardboard Panel Printer Relationship Specialty Start Date End Date Unknown, Unknown, MD PCP - General 06/10/20 03/26/21 Lindsay Christopher PA [address] [place] [id number] PCP - General Family Medicine 03/27/21 02/22/24 Carri Guillermo PA [address] [place] [phone] PCP - General Physician Colorer Machine 02/23/24 documented as of this encounter Additional Source Comments The information contained in this document represents components of the legal health record. It is not the complete legal health record.[facility]
--- OUTSIDE RECORDS SUMMARY | 2025-07-12 16:02 | XMS_ITS | Encounter Summary ---
Author Organization [facility] Address [address] [place] [phone] Phone Care Team Providers Care Nut Sheller Name Role Phone Lindsay Christopher Primary Care Provider [phone] Carri Guillermo Primary Care Provider [phone] Encounter Details Date Type Department Care Team (Late st Contact Info) Description 11/25/2022 Procedure Pass [facility] Endoscopy Admitting Dept Virtual Department [address] [place] [address] Social History Tobacco Use Types Packs/Day Years Used Date Smoking Tobacco: Never Smokeless Tobacco: Never Alcohol Use Standard Drinks/Week Comments Yes 0 (1 standard drink = 0.6 oz pur e alcohol) very rare Education Answer Date Recorded Are you interested in more education? Not on manolo e 11/08/2022 Are you concerned about learning? Not on file 11/08/2022 No 11/08/2022 No 11/08/2022 Comments No Sex and Gender Information Value [...] on filedocumented in this encounter Care Teams Nut Sheller Relationship Specialty Start Date End Date Lindsay Christopher PA [address] [place] [phone] PCP - General Family Medicine 03/27/21 02/22/24 Carri Guillermo PA [address] [place] [phone] PCP - General Physician Form Setter Supervisor 02/23/24 documented as of this encounter Additional Source Comments The information contained in this document represents components of the legal health record. It is not the complete legal health record.[facility]
== END 2025-07-12 12:29 | disposition home or self-care (01) ==
LOC: HO.HSM 11:59
PROVIDERS: PCP Physician Assistant; Visit Provider Psychiatry & Neurology Neurology
DX: G43.009 Migraine without aura, not intractable, without status migrainosus (principal); G25.81 Restless legs syndrome; F51.04 Psychophysiologic insomnia; F41.9 Anxiety disorder, unspecified
CPT/HCPCS: 99214